=== PATIENT | female | born 1980 | race Caucasian/White ===

== ENCOUNTER 2016-04-17 06:23 | Day surgery (SDC) | payer OTHER ==
[~2016-04-17] VITALS: Ht 157.5 cm; Wt 108.4 kg
[~2016-04-17 06:23] MED LIST: AMIT75TA PO; CEFAZOLIN 1GM IVPB FOR OMNI 50 ML IV PRN; CETI10CA PO; FLUO20CA8 PO; HYDR-2666 PO; HYDR12.53 PO; HYDR25TA PO; OMEP40CA5 PO; PROM25TA10 PO; SUMA50TA3 PO; TIZA4CAP3 PO; TRAM50TA PO
[2016-04-17] MEDS ORDERED: HYDROMORPHONE 2 MG/ML VIAL. IV PRN (07:00)
[2016-04-17] MEDS ORDERED: LIDOCAINE 1% 1 ML SYRINGE. ID PRN (07:00)
[2016-04-17] MEDS ORDERED: MORPHINE SULFATE 2 MG/ML DISP.SYRIN. IV PRN (07:00)
[2016-04-17] MEDS ORDERED: IV RINGERS,LACTATED 1000ML 1,000 ML IV SCH (07:00)
[2016-04-17] MEDS ORDERED: FENTANYL PF 100 MCG/2 ML VIAL. IV PRN (07:00)
[2016-04-17] MEDS ORDERED: PROCHLORPERAZINE 10 MG/2 ML VIAL. IV PRN (07:00)
[2016-04-17] MEDS ORDERED: ONDANSETRON PF 4 MG/2 ML VIAL. IV PRN (07:00)
[2016-04-17] MEDS ORDERED: BUPIVACAINE MPF 0.5% 30 ML VIAL. ONE (07:09)
[2016-04-17] MEDS ORDERED: LIDOCAINE 1% PF 30 ML VIAL. ONE ×2 (07:09→08:43)
--- NOTE | 2016-04-17 07:37 | DISCH ---
DISCHARGE INSTRUCTIONS Condition on Discharge Condition on Discharge: Stable Activity After Discharge Activity Instructions for Disc: Other, see below Other activity instructions: wiggle fingers Bathing Instructions: Shower-keep dressing dry Weight Bearing Status after Di: Non weight bearing Diet after Discharge Diet after Discharge: Regular Wound Incision Care Wound/Incision Care: Ice to area for comfort, Keep wound/cast CDI, Keep wound elevated, Change dressing Contacting the DR. after DC Call your doctor for: Concerns you may have Follow-Up Follow up with: Tiny in 2wks MIKALA PEREZ II, MD Apr 17, 2016 07:37
--- NOTE | 2016-04-17 07:38 | PDOC ---
BRIEF OPERATIVE NOTE Date: Apr 17, 2016 Pre-Op Diagnosis R CTS Post-Op Diagnosis same Procedure Performed Open R CTR Surgeon Tiny Anesthesiologist Muna Anesthesia Type: Regional, Conscious Sedation Blood Loss 5mL Complications none MIKALA PEREZ II, MD Apr 17, 2016 07:38
[2016-04-17 07:44] LABS: NEG OBC UR NEG; POS OBC UR POS
[2016-04-17] MEDS ORDERED: ONDANSETRON PF 4 MG/2 ML VIAL. ONE (07:57)
[2016-04-17] MEDS ORDERED: LIDOCAINE 2% 100 MG/5 ML DISP.SYRIN. ONE (07:57)
[2016-04-17] MEDS ORDERED: PROPOFOL 20 ML IV ONE (07:57)
[2016-04-17] MEDS ORDERED: FENTANYL PF 100 MCG/2 ML VIAL. ONE (07:58)
[2016-04-17] MEDS ORDERED: MIDAZOLAM HCL 2 MG/2 ML VIAL. ONE (07:59)
[2016-04-17] MEDS: FENTANYL PF 100 MCG/2 ML VIAL. IV PRN ×2 (09:56→10:07)
[2016-04-17] MEDS ORDERED: HYDROCODONE/APAP 5/325MG TABLET. PO ONE (10:00)
[2016-04-17 10:10] VITALS: BP 160/90
--- NOTE | 2016-04-17 19:56 | OP ---
DATE OF SURGERY: 04/17/2016 SURGEON: Ramone Perez MD. ICT SALES ASSISTANT: None. ANESTHESIA: Whittlesey block . TOURNIQUET TIME: 22 minutes. ESTIMATED BLOOD LOSS: 5 mL. PREOPERATIVE DIAGNOSIS: Right carpal tunnel syndrome. POSTOPERATIVE DIAGNOSIS: Right carpal tunnel syndrome. PROCEDURE PERFORMED: Open right carpal tunnel release. COMPLICATIONS: None. REASON FOR PROCEDURE: The patient is a very pleasant 36-year-old female with progressive numbness and tingling in median nerve distribution in her right hand. She had tried an injection as well as nighttime splinting and these gave her some temporary relief, but her symptoms worsened. Because of this, we had a discussion of risks, benefits, alternatives of proceeding with the above surgery and she elected to proceed. DESCRIPTION OF PROCEDURE: The patient was greeted in the preoperative area by myself. The correct extremity was marked and verified. She was taken to the operative suite and a Whittlesey block was placed by the anesthesiology team. With the tourniquet up, we proceeded to prep and drape the right upper extremity in our usual sterile fashion and conducted a standard preoperative timeout. I then made a skin incision from her distal wrist crease through a volar longitudinal wrist crease. I dissected subcutaneous tissue with a mosquito clamp. I then placed my self-retaining retractor after cauterizing a couple of bleeders with bipolar cautery. I then incised the palmar fascia in line with the skin incision. I identified the transverse carpal ligament and released this. I then used the tip of a small tenotomy scissors to ensure I had full release over the transverse carpal ligament. I then placed a Ragnell retractor at the distal portion of the incision and identified the fascia and spread above and below and incised this to complete my release distally. I then directed my attention to the proximal aspect of the incision and placed a Ragnell retractor there as well with a tenotomy. I then spread above and below the distal antebrachial fascia and released this in an ulnar directed fashion. I then used the tip of the tenotomy scissors to palpate along the course of the nerve to ensure I had accomplished a complete release, which I had. I then irrigated out the operative field after removing my self-retaining retractor with sterile normal saline. I then closed skin with a combination of simple and mattress 2-0 nylon. Prior to completion of wound closure, all counts were reported correct x 2. No complications. She tolerated the surgery well. At the conclusion of surgery, she was transferred gently supine to the recovery room cart and taken to PACU in stable and extubated condition. Postop plan is for her to be nonweightbearing for 6 weeks. I did give her wound care instructions. She will follow up with me in 2 weeks, sooner should a problem arise. RAMONE PEREZ MD DR: ROLANDO/rodolfo JOB#: [id number] / [id number] GE
== END 2016-04-17 10:54 | disposition home or self-care (01) ==
LOC: SURG 06:23
PROVIDERS: ATTEND Orthopaedic Surgery Sports Medicine
DX: G56.01 Carpal tunnel syndrome, right upper limb (principal); I10 Essential (primary) hypertension; K21.9 Gastro-esophageal reflux disease without esophagitis; Z12.4 Encounter for screening for malignant neoplasm of cervix; F41.9 Anxiety disorder, unspecified; F32.9 Major depressive disorder, single episode, unspecified; F17.200 Nicotine dependence, unspecified, uncomplicated
CPT/HCPCS: 64721; 81025; J0690; J2250; J2405; J2704; J3010; J3490

== ENCOUNTER 2016-09-22 19:35 | Emergency (ER) | payer OTHER ==
[~2016-09-22] VITALS: Ht 157.5 cm; Wt 104.3 kg
[~2016-09-22 19:35] MED LIST changes: -CEFAZOLIN 1GM IVPB FOR OMNI 50 ML IV PRN; -HYDR-2666 PO; +HYDR-2758 PO
[2016-09-22 19:38] VITALS: BP 133/70
[2016-09-22] MEDS ORDERED: AMOX875T PO (19:54)
--- NOTE | 2016-09-22 19:54 | PHYS DOC ---
Past Medical History Past Medical History: Hypertension, Migraines, Other Additional Past Medical Histor: Chronic back pain, heartburn Past Surgical History: , Tubal ligation, Other Additional Past Surgical Histo: Breast reduction, Dental surgery, Alcohol Use: None Drug Use: None Adult General Chief Complaint Chief Complaint: DENTAL PROBLEM HPI HPI Patient is a 36 year old female who presents with right jaw dental pain that began today. Patient denies any fever or trismus. She states she does have a dentist she would like antibiotics. Review of Systems Review of Systems Constitutional: See history of present illness Eyes: Denies change in visual acuity, redness, or eye pain [] HENT: Right lower gum dental pain Musculoskeletal: Denies back pain or joint pain [] Integument: Denies rash or skin lesions [] Neurologic: Denies headache, focal weakness or sensory changes [] Allergies Allergies Allergies Coded Allergies Type Severity Reaction Last Updated Verified pregabalin Allergy Intermediate Itching 04/17/16 Yes lisinopril Adverse Reaction Intermediate 04/17/16 Yes Physical Exam Physical Exam Constitutional: Well developed, well nourished, no acute distress, non-toxic appearance. [] HENT: Normocephalic, atraumatic, bilateral external ears normal, oropharynx moist, no oral exudates, nose normal. [] Scattered dental caries throughout her teeth. No gum erythema. No gum swelling. Skin: Warm, dry, no erythema, no rash. [] Neurologic: Alert and oriented X 3, normal motor function, normal sensory function, no focal deficits noted. [] Psychologic: Affect normal, judgement normal, mood normal. [] Current Patient Data Vital Signs Vital Signs Date Time Temp Pulse Resp B/P (MAP) Pulse Ox O2 Delivery O2 Flow Rate FiO2 09/22/16 19:38 98.7 104 16 97 Room Air 98.7 EKG EKG [] Radiology/Procedures Radiology/Procedures [] Course & Med Decision Making Course & Med Decision Making Pertinent Labs and Imaging studies reviewed. (See chart for details) Patient has dental caries. Will be discharged with amoxicillin for 10 days. Follow-up with primary care doctor in 1-2 weeks. Dragon Disclaimer Dragon Disclaimer This electronic medical record was generated, in whole or in part, using a voice recognition dictation system. Departure Departure Impression: Primary Impression: Dentalgia Additional Impression: Dental caries Disposition: HOME, SELF-CARE Condition: STABLE Referrals: DARRIN WYNN (PCP) Follow-up with your dentist as soon as possible Patient Instructions: Dental Caries-Brief, Dental Pain, [id number] Additional Instructions: You were seen for dental pain from dental caries. Please complete your antibiotics. Follow-up with your dentist as soon as possible. Scripts Amoxicillin (AMOXICILLIN) 875 Mg Tablet 1 TAB PO BID, #20 TAB Prov: YENIFER MELENDEZ APRN 09/22/16 Problem Qualifiers YENIFER MELENDEZ APRN Sep 22, 2016 19:54
== END 2016-09-22 19:57 | disposition home or self-care (01) ==
LOC: ER 19:35
DX: K02.9 Dental caries, unspecified (principal); K08.89 Other specified disorders of teeth and supporting structures; G89.29 Other chronic pain; I10 Essential (primary) hypertension; G43.909 Migraine, unspecified, not intractable, without status migrainosus; Z88.8 Allergy status to other drugs, medicaments and biological substances
CPT/HCPCS: 99283

== ENCOUNTER 2017-12-29 17:39 | Emergency (ER) | payer OTHER ==
[~2017-12-29] VITALS: Ht 157.5 cm; Wt 88.5 kg
[~2017-12-29 17:39] MED LIST changes: +AMOX875T PO
[2017-12-29] MEDS ORDERED: IV NORMAL SALINE 1000ML BAG 1,000 ML IV ONE (19:00)
[2017-12-29] MEDS ORDERED: ONDANSETRON PF 4 MG/2 ML VIAL. IV ONE (19:00)
--- NOTE | 2017-12-29 19:17 | PHYS DOC ---
Past Medical History Past Medical History: Diabetes-Type II, Hypertension, Migraines, Other Additional Past Medical Histor: Chronic back pain, heartburn, cyclic vomiiting syndrome Past Surgical History: , Tubal ligation, Other Additional Past Surgical Histo: Breast reduction, Dental surgery, "cold knife cone biopsy" Additional Information: quit smoking 3 years ago Alcohol Use: None Drug Use: Marijuana Social History Narrative: daily use Adult General Chief Complaint Chief Complaint: NAUSEA/VOMITING/DIARRHA HPI HPI Patient is a 37 year old female who presents with intractable nausea and vomiting. Patient states she has a known history of cyclic vomiting syndrome. She was last in an emergency department yesterday morning. Today, she presents to this emergency department complaining of vomiting. She does endorse daily use of marijuana. She denies abdominal pain or fever. She states this is a very typical presentation for her. She does go to multiple ERs across [place] frequently. She is asking for Ativan and Phenergan and Zofran. Review of Systems Review of Systems Constitutional: Denies fever or chills Eyes: Denies change in visual acuity HENT: Denies nasal congestion or sore throat Respiratory: Denies cough or shortness of breath Cardiovascular: No additional information not addressed in HPI GI: Denies abdominal pain : Denies dysuria or hematuria Musculoskeletal: Denies back pain Integument: Denies rash Neurologic: Denies headache All other systems were reviewed and found to be within normal limits, except as documented in this note. Current Medications Current Medications Current Medications Medications (Trade) Dose Ordered Sig/Darinel Start Time Stop Time Status Last Admin Dose Admin Famotidine (Pepcid Vial) 20 mg 1X ONCE 12/29/17 19:30 12/29/17 19:31 DC 12/29/17 19:10 20 MG Lorazepam (Ativan) 1 mg 1X ONCE 12/29/17 19:45 12/29/17 19:46 DC 12/29/17 19:26 1 MG Ondansetron HCl (Zofran) 4 mg 1X ONCE 12/29/17 19:00 12/29/17 19:01 DC 12/29/17 18:40 4 MG Prochlorperazine Edisylate (Compazine) 10 mg 1X ONCE 12/29/17 19:45 12/29/17 19:46 DC 12/29/17 19:26 10 MG Sodium Chloride 1,000 ml @ 1,000 mls/hr 1X ONCE 12/29/17 19:00 12/29/17 19:59 DC 12/29/17 18:40 1,000 MLS/HR Allergies Allergies Allergies Coded Allergies Type Severity Reaction Last Updated Verified pregabalin Allergy Intermediate Itching 04/17/16 Yes lisinopril Adverse Reaction Intermediate 04/17/16 Yes Physical Exam Physical Exam Constitutional: Well developed, well nourished, actively heaving into emesis basin HENT: Normocephalic, atraumatic, bilateral external ears normal, oropharynx moist Eyes: PERRLA, EOMI Neck: Normal range of motion Cardiovascular:Heart rate regular rhythm, no murmur Lungs & Thorax: Bilateral breath sounds clear to auscultation Abdomen: Bowel sounds normal, soft Skin: Warm, dry, no erythema Extremities: No tenderness Neurologic: Alert and oriented X 3 Psychologic: Affect normal Current Patient Data Vital Signs Vital Signs Date Time Temp Pulse Resp B/P (MAP) Pulse Ox O2 Delivery O2 Flow Rate FiO2 12/29/17 18:45 57 18 169/77 (107) Room Air Lab Values Laboratory Tests Test 12/29/17 18:06 POC Urine HCG, Qualitative Hcg negative (Negative) EKG EKG [] Radiology/Procedures Radiology/Procedures [] Course & Med Decision Making Course & Med Decision Making Pertinent Labs and Imaging studies reviewed. (See chart for details) Is evaluated for vomiting. She is actively heaving. She was requesting Phenergan. We do not have this drug available. She is given a dose of Ativan, Zofran, Pepcid. 19:15: Continues to have emesis. She is dry heaving. She is requesting water. We'll re-dose with medications and reevaluate. 20:30: Patient now has been sleeping for about an hour with no emesis. Her vital signs are stable. Plan is for discharge home. She is advised to follow-up with her primary care doctor or return to the ER if her symptoms return. Dragon Disclaimer Dragon Disclaimer This electronic medical record was generated, in whole or in part, using a voice recognition dictation system. Departure Departure Referrals: GONZÁLEZ BETTS MD (PCP) SOPHY LUCERO DO Dec 29, 2017 19:17
[2017-12-29] MEDS ORDERED: FAMOTIDINE 20 MG/2 ML VIAL IVP ONE (19:30)
[2017-12-29 19:42] VITALS: BP 166/80
[2017-12-29] MEDS ORDERED: PROCHLORPERAZINE 10 MG/2 ML VIAL. IV ONE (19:45)
== END 2017-12-29 20:45 | disposition home or self-care (01) ==
LOC: ER 17:39
DX: R11.2 Nausea with vomiting, unspecified (principal); I10 Essential (primary) hypertension; E11.9 Type 2 diabetes mellitus without complications; G89.29 Other chronic pain; M54.9 Dorsalgia, unspecified; F12.10 Cannabis abuse, uncomplicated; Z87.891 Personal history of nicotine dependence; Z88.8 Allergy status to other drugs, medicaments and biological substances
CPT/HCPCS: 81025; 96361; 96374; 96375; 96376; 99284; J0780; J2060; J2405; J3490; J7030

== ENCOUNTER 2019-01-04 10:21 | Emergency (ER) | payer OTHER ==
[~2019-01-04] VITALS: Ht 157.5 cm; Wt 81.6 kg
[~2019-01-04 10:21] MED LIST changes: -HYDR-2758 PO; +HYDR-2761 PO; -HYDR12.53 PO; +HYDR12.575 PO; +OMEP40CA45 PO; -OMEP40CA5 PO
[2019-01-04] MEDS ORDERED: HALOPERIDOL LACTATE 5 MG/ML VIAL. IVP ONE (10:45)
[2019-01-04] MEDS ORDERED: methylPREDNISolone SOD SUCC PF 125 MG/2 ML VIAL. IV ONE (10:45)
[2019-01-04] MEDS ORDERED: PROCHLORPERAZINE 10 MG/2 ML VIAL. IV ONE (10:45)
[2019-01-04] MEDS ORDERED: KETOROLAC 30 MG/ML VIAL. IVP ONE (10:45)
[2019-01-04 11:24] LABS: BILIRUBIN,URINE NEGATIVE (NEG); CLARITY,URINE TURBID; COLOR,URINE YELLOW; NITRITE,URINE NEGATIVE (NEG); PROTEIN,URINE 30 mg/dL (NEG-TRACE); UROBILINOGEN,URINE 0.2 mg/dL (0.2 mg/dL)
[2019-01-04 11:27] LABS: BARBITURATES NEG (NEG); BENZODIAZEPINES NEG (NEG); CANNABINOIDS POS (NEG); COCAINE NEG (NEG); METHADONE NEG (NEG); OPIATES NEG (NEG); PHENCYCLIDINE NEG (NEG)
[2019-01-04 11:28] LABS: AMPHETAMINE/METHAMPHETAMINE NEG (NEG)
[2019-01-04 11:37] LABS: SQUAMOUS EPITHELIAL CELL,UR MOD /LPF
[2019-01-04 11:38] LABS: BASO # 0.1 x10^3/uL (0.0-0.2); BASO % 1 % (0-3); EOS % 0 % (0-3); HEMATOCRIT 44.8 % (36.0-47.0); HEMOGLOBIN 15.5 g/dL (12.0-15.5); LYMPH # 1.9 x10^3/uL (1.0-4.8); LYMPH % 10 % (24-48); MEAN CORPUSCULAR HEMOGLOBIN 32 pg (25-35); MEAN CORPUSCULAR HGB CONC 35 g/dL (31-37); MEAN CORPUSCULAR VOLUME 94 fL (79-100); MONO # 0.7 x10^3/uL (0.0-1.1); MONO % 4 % (0-9); NEUT # 16.6 x10^3/uL (1.8-7.7); NEUT % 86 % (31-73); PLATELET COUNT 394 x10^3/uL (140-400); RED BLOOD COUNT 4.78 x10^6/uL (3.50-5.40); RED CELL DISTRIBUTION WIDTH 14.7 % (11.5-14.5); WHITE BLOOD COUNT 19.3 x10^3/uL (4.0-11.0)
[2019-01-04 11:39] LABS: BACTERIA,URINE MOD /HPF (0-FEW)
[2019-01-04 11:40] LABS: YEAST,URINE PRESENT /HPF
[2019-01-04 11:48] LABS: CALCIUM 9.8 mg/dL (8.5-10.1); GFR 62.7; POTASSIUM 3.1 mmol/L (3.5-5.1)
[2019-01-04 11:55] LABS: ALBUMIN 4.3 g/dL (3.4-5.0); ALBUMIN/GLOBULIN RATIO 1.1 (1.0-1.7); TOTAL PROTEIN 8.3 g/dL (6.4-8.2)
[2019-01-04] MEDS ORDERED: IOHEXOL 300 MG/ML 100ML VIAL. IV ONE (12:30)
[2019-01-04] MEDS ORDERED: CONTRAST GIVEN. MC PRN (12:30)
[2019-01-04 12:51] LABS: % BANDS 1 % (0-9); % LYMPHS 5 % (24-48); % MONOS 5 % (0-10); % SEGS 89 % (35-66); PLT ESTIMATE ADEQUATE (ADEQUATE); TOXIC VACUOLATION SLIGHT
--- NOTE | 2019-01-04 13:40 | RAD ---
CT of the abdomen and pelvis with IV contrast, compared to similar study dated June 29, 2007 for abdominal pain, vomiting, elevated white blood cell count. TECHNIQUE: Contiguous helical 5 mm axial images are obtained from the apex of diaphragm to the pelvic floor following a ministration of IV contrast. Sagittal and coronal reformations are evaluated. FINDINGS: The lung bases are clear. Heart size within normal limits. The distal esophagus is patulous. The liver, gallbladder, pancreas, spleen, and adrenal glands are grossly unremarkable. Left kidney is normal. At the posterior midpole of the right kidney there is 1.6 cm hypodense lesion with Hounsfield units of 30 suggesting complex fluid or soft tissue. This is incompletely evaluated on this single phase examination. No hydronephrosis or nephrolithiasis identified. The ureters are normal in course and caliber throughout their distribution. The urinary bladder is partially fluid distended and grossly unremarkable. Uterus is present. Left ovary is identified. Right ovary is not clearly seen. No free or loculated fluid collections within the abdomen or pelvis. There is limited evaluation of large and small bowel due to lack of enteric contrast, however there are no areas of focal bowel wall thickening or bowel dilatation. The appendix is normal in appearance. Spinal alignment is intact. There is a limbus vertebrae at L5, and there is mild degenerative disc disease at L5-S1. IMPRESSION: 1. No acute abnormalities of the abdomen or pelvis are identified. 2. 1.6 cm abnormality within the midpole of the right kidney, perhaps a complex cyst versus neoplasm. Further evaluation with renal ultrasound, 3 [address] scan, or renal MRI would yield clarity. 3. Incidental limbus vertebra at L5 of doubtful clinical significance. RS Compliance Statement: One or more of the following individualized dose reduction techniques were utilized for this examination: 1. Automated exposure control 2. Adjustment of the mA and/or kV according to patient size 3. Use of iterative reconstruction technique Electronically signed by: Endy Avelar MD (01/04/2019 1:37 PM) [id number]
[2019-01-04] MEDS ORDERED: POTASSIUM CHLORIDE 20 MEQ TABLET.ER. PO ONE (14:45)
[2019-01-04] MEDS ORDERED: ONDA4TAB12 PO (14:55)
--- NOTE | 2019-01-04 14:56 | PHYS DOC ---
Past Medical History Past Medical History: Diabetes-Type II, Hypertension, Migraines, Other Additional Past Medical Histor: Chronic back pain, heartburn, cyclic vomiiting syndrome Past Surgical History: , Tubal ligation, Other Additional Past Surgical Histo: Breast reduction, Dental surgery, "cold knife cone biopsy" Alcohol Use: None Drug Use: Marijuana Adult General Chief Complaint Chief Complaint: NAUSEA/VOMITING/DIARRHA HPI HPI Patient is a 38 year old female with history of cyclic vomiting, migraine headaches who presents today complaining of nausea, vomiting, generalized abdominal pain and a generalized migraine headache that began this morning at 5 AM. Patient states her cyclic vomiting is not induced by marijuana use though she used it a couple days ago. Denies this being the worst headache in her life. Denies any exacerbating or relieving factors to her symptoms. Review of Systems Review of Systems Constitutional: Denies fever or chills [] Eyes: Denies change in visual acuity, redness, or eye pain [] HENT: Denies nasal congestion or sore throat [] Respiratory: Denies cough or shortness of breath [] Cardiovascular: No additional information not addressed in HPI [] GI: Reports generalized abdominal pain, nausea, vomiting, denies bloody stools or diarrhea [] : Denies dysuria or hematuria [] Musculoskeletal: Denies back pain or joint pain [] Integument: Denies rash or skin lesions [] Neurologic: Reports migraine headache, denies focal weakness or sensory changes [] All other systems were reviewed and found to be within normal limits, except as documented in this note. Current Medications Current Medications Current Medications Medications (Trade) Dose Ordered Sig/[facility] Start Time Stop Time Status Last Admin Dose Admin Haloperidol Lactate (Haldol Inj) 5 mg 1X ONCE 01/04/19 10:45 01/04/19 10:48 DC 01/04/19 11:32 5 MG Info (CONTRAST GIVEN -- Rx MONITORING) 1 each PRN DAILY PRN 01/04/19 12:30 01/06/19 12:29 Iohexol (Omnipaque 300 Mg/ml) 75 ml 1X ONCE 01/04/19 12:30 01/04/19 12:31 DC 01/04/19 12:39 75 ML Ketorolac Tromethamine (Toradol 30mg Vial) 30 mg 1X ONCE 01/04/19 10:45 01/04/19 10:48 DC 01/04/19 11:32 30 MG Methylprednisolone Sodium Succinate (SOLU-Medrol 125MG VIAL) 125 mg 1X ONCE 01/04/19 10:45 01/04/19 10:48 DC 01/04/19 11:32 125 MG Potassium Chloride (Klor-Con) 40 meq 1X ONCE 01/04/19 14:45 01/04/19 14:46 DC Prochlorperazine Edisylate (Compazine) 10 mg 1X ONCE 01/04/19 10:45 01/04/19 10:48 DC 01/04/19 11:32 10 MG Allergies Allergies Allergies Coded Allergies Type Severity Reaction Last Updated Verified pregabalin Allergy Intermediate Itching 04/17/16 Yes lisinopril Adverse Reaction Intermediate 04/17/16 Yes Physical Exam Physical Exam Constitutional: Well developed, well nourished, no acute distress, non-toxic appearance. [] HENT: Normocephalic, atraumatic, bilateral external ears normal, oropharynx moist, no oral exudates, nose normal. [] Eyes: PERRLA, EOMI, conjunctiva normal, no discharge. [] Neck: Normal range of motion, no tenderness, supple, no stridor. [] Cardiovascular:Heart rate regular rhythm, no murmur [] Lungs & Thorax: Bilateral breath sounds clear to auscultation [] Abdomen: Patient is actively vomiting on arrival to the ED by EMS. Bowel sounds normal, soft, diffuse tenderness throughout the abdomen, no masses, no pulsatile masses. [] Skin: Warm, dry, no erythema, no rash. [] Back: No tenderness, no CVA tenderness. [] Extremities: No tenderness, no cyanosis, no clubbing, ROM intact, no edema. [] Neurologic: Alert and oriented X 3, normal motor function, normal sensory function, no focal deficits noted. Cranial nerves II through XII intact Psychologic: Affect normal, judgement normal, mood normal. [] Current Patient Data Vital Signs Vital Signs Date Time Temp Pulse Resp B/P (MAP) Pulse Ox O2 Delivery O2 Flow Rate FiO2 01/04/19 10:54 98.6 76 16 157/85 (109) 100 Room Air 98.6 Lab Values Laboratory Tests Test 01/04/19 11:10 01/04/19 11:13 01/04/19 11:26 Urine Collection Type Unknown Urine Color Yellow Urine Clarity Turbid Urine pH 8.0 Urine Specific [place] 1.015 Urine Protein 30 mg/dL (NEG-TRACE) Urine Glucose (UA) Negative mg/dL (NEG) Urine Ketones (Stick) >=80 mg/dL (NEG) Urine Blood Large (NEG) Urine Nitrite Negative (NEG) Urine Bilirubin Negative (NEG) Urine Urobilinogen Dipstick 0.2 mg/dL (0.2 mg/dL) Urine Leukocyte Esterase Trace (NEG) Urine RBC 6-10 /HPF (0-2) Urine WBC 5-10 /HPF (0-4) Urine Squamous Epithelial Cells Mod /LPF Urine Bacteria Mod /HPF (0-FEW) Urine Yeast Present /HPF Urine Opiates Screen Neg (NEG) Urine Methadone Screen Neg (NEG) Urine Barbiturates Neg (NEG) Urine Phencyclidine Screen Neg (NEG) Urine Amphetamine/Methamphetamine Neg (NEG) Urine Benzodiazepines Screen Neg (NEG) Urine Cocaine Screen Neg (NEG) Urine Cannabinoids Screen Pos (NEG) Urine Ethyl Alcohol Neg (NEG) POC Urine HCG, Qualitative Hcg negative (Negative) White Blood Count 19.3 x10^3/uL (4.0-11.0) H Red Blood Count 4.78 x10^6/uL (3.50-5.40) Hemoglobin 15.5 g/dL (12.0-15.5) Hematocrit 44.8 % (36.0-47.0) Mean Corpuscular Volume 94 fL (79-100) Mean Corpuscular Hemoglobin 32 pg (25-35) Mean Corpuscular Hemoglobin Concent 35 g/dL (31-37) Red Cell Distribution Width 14.7 % (11.5-14.5) H Platelet Count 394 x10^3/uL (140-400) Neutrophils (%) (Auto) 86 % (31-73) H Lymphocytes (%) (Auto) 10 % (24-48) L Monocytes (%) (Auto) 4 % (0-9) Eosinophils (%) (Auto) 0 % (0-3) Basophils (%) (Auto) 1 % (0-3) Neutrophils # (Auto) 16.6 x10^3/uL (1.8-7.7) H Lymphocytes # (Auto) 1.9 x10^3/uL (1.0-4.8) Monocytes # (Auto) 0.7 x10^3/uL (0.0-1.1) Eosinophils # (Auto) 0.0 x10^3/uL (0.0-0.7) Basophils # (Auto) 0.1 x10^3/uL (0.0-0.2) Segmented Neutrophils % 89 % (35-66) H Band Neutrophils % 1 % (0-9) Lymphocytes % 5 % (24-48) L Monocytes % 5 % (0-10) Toxic Vacuolation Slight Dohle Bodies Present Platelet Estimate Adequate (ADEQUATE) Sodium Level 144 mmol/L (136-145) Potassium Level 3.1 mmol/L (3.5-5.1) L Chloride Level 103 mmol/L (98-107) Carbon Dioxide Level 21 mmol/L (21-32) Anion Gap 20 (6-14) H Blood Urea Nitrogen 16 mg/dL (7-20) Creatinine 1.0 mg/dL (0.6-1.0) Estimated GFR (Cockcroft-Gault) 62.7 BUN/Creatinine Ratio 16 (6-20) Glucose Level 193 mg/dL (70-99) H Calcium Level 9.8 mg/dL (8.5-10.1) Total Bilirubin 1.0 mg/dL (0.2-1.0) Aspartate Amino Transferase (AST) 18 U/L (15-37) Alanine Aminotransferase (ALT) 16 U/L (14-59) Alkaline Phosphatase 89 U/L (46-116) Total Protein 8.3 g/dL (6.4-8.2) H Albumin 4.3 g/dL (3.4-5.0) Albumin/Globulin Ratio 1.1 (1.0-1.7) Lipase 124 U/L (73-393) Ethyl Alcohol Level < 10 mg/dL (0-10) Laboratory Tests 01/04/19 11:26 Laboratory Tests 01/04/19 11:26 EKG EKG [] Radiology/Procedures Radiology/Procedures []PROCEDURE: CT ABD PELV W/ IV CONTRST ONLY CT of the abdomen and pelvis with IV contrast, compared to similar study dated June 29, 2007 for abdominal pain, vomiting, elevated white blood cell count. TECHNIQUE: Contiguous helical 5 mm axial images are obtained from the apex of diaphragm to the pelvic floor following a ministration of IV contrast. Sagittal and coronal reformations are evaluated. FINDINGS: The lung bases are clear. Heart size within normal limits. The distal esophagus is patulous. The liver, gallbladder, pancreas, spleen, and adrenal glands are grossly unremarkable. Left kidney is normal. At the posterior midpole of the right kidney there is 1.6 cm hypodense lesion with Hounsfield units of 30 suggesting complex fluid or soft tissue. This is incompletely evaluated on this single phase examination. No hydronephrosis or nephrolithiasis identified. The ureters are normal in course and caliber throughout their distribution. The urinary bladder is partially fluid distended and grossly unremarkable. Uterus is present. Left ovary is identified. Right ovary is not clearly seen. No free or loculated fluid collections within the abdomen or pelvis. There is limited evaluation of large and small bowel due to lack of enteric contrast, however there are no areas of focal bowel wall thickening or bowel dilatation. The appendix is normal in appearance. Spinal alignment is intact. There is a limbus vertebrae at L5, and there is mild degenerative disc disease at L5-S1. IMPRESSION: 1. No acute abnormalities of the abdomen or pelvis are identified. 2. 1.6 cm abnormality within the midpole of the right kidney, perhaps a complex cyst versus neoplasm. Further evaluation with renal ultrasound, [address] scan, or renal MRI would yield clarity. 3. Incidental limbus vertebra at L5 of doubtful clinical significance. PQRS Compliance Statement: One or more of the following individualized dose reduction techniques were utilized for this examination: 1. Automated exposure control 2. Adjustment of the mA and/or kV according to patient size 3. Use of iterative reconstruction technique Electronically signed by: Rey Quinn MD (01/04/2019 1:37 PM) [facility] DICTATED and SIGNED BY: REY QUINN MD DATE: 01/04/19 1333 Course & Med Decision Making Course & Med Decision Making Pertinent Labs and Imaging studies reviewed. (See chart for details) This is a 38-year-old female patient with history of cyclic vomiting presenting to the ED today with nausea vomiting generalized abdominal pain and migraine headache that began at 5. Patient arrives in the ED vomiting. Positive for marijuana use which she believes is not the source of her cyclic vomiting. Urine analysis is negative for infection. CBC with a WBC of 19.3, CMP with potassium of 3.1, patient was given oral potassium replacement. CT of the abdomen and pelvic was negative for any acute findings but noted for incidental findings of 1.6 cm abnormality within the midpole of the right kidney, perhaps a complex cyst versus neoplasm. Further evaluation with renal ultrasound, [address] scan, or renal MRI would yield clarity. Incidental limbus vertebra at L5 of doubtful clinical significance. Patient's symptoms are well controlled. Above results were discussed. Discharged to home Dragon Disclaimer Dragon Disclaimer This electronic medical record was generated, in whole or in part, using a voice recognition dictation system. Departure Departure Impression: Primary Impression: Cyclic vomiting syndrome Additional Impressions: Migraine headache Hypokalemia Marijuana use Disposition: HOME, SELF-CARE Condition: STABLE Referrals: ABEL ANDRES PA-C (PCP) Follow-up with your doctor next week Patient Instructions: Hypokalemia-Brief, Recurrent Migraine Headache Additional Instructions: You were evaluated in the emergency room for cyclic vomiting and migraine headaches. Please follow-up with your own doctor. Consider not using marijuana because he tends to exacerbate cyclic vomiting syndrome. Your zofran prescription was sent to your pharmacy [facility] Ondansetron (ONDANSETRON ODT) 4 Mg Tab.rapdis 1 TAB PO PRN Q6-8HRS, #16 TAB Prov: YENIFER MELENDEZ APRN 01/04/19 Problem Qualifiers Additional Impressions: Migraine headache Migraine type: unspecified Status migrainosus presence: without status migrainosus Intractability: not intractable Qualified Codes: G43.909 - Migraine, unspecified, not intractable, without status migrainosus YENIFER MELENDEZ APRN Jan 04, 2019 14:56
[2019-01-04 15:00] VITALS: BP 147/94
== END 2019-01-04 15:28 | disposition home or self-care (01) ==
LOC: ER 10:21
DX: G43.A0 Cyclical vomiting, in migraine, not intractable (principal); E87.6 Hypokalemia; F12.20 Cannabis dependence, uncomplicated; E11.9 Type 2 diabetes mellitus without complications; I10 Essential (primary) hypertension; G89.29 Other chronic pain; Z98.890 Other specified postprocedural states; Z98.51 Tubal ligation status; Z88.8 Allergy status to other drugs, medicaments and biological substances
CPT/HCPCS: 36415; 74177; 80053; 80307; 81001; 81025; 83690; 85007; 85025; 96374; 96375; 99285; G0480; J0780; J1630; J1885; J2930; Q9967; 99291-25

== ENCOUNTER 2019-02-16 01:02 | Inpatient (IN) | payer OTHER ==
[~2019-02-16] VITALS: Ht 157.5 cm; Wt 81.7 kg
[~2019-02-16 01:02] MED LIST changes: +FLUO20CA19 PO; -FLUO20CA8 PO; +ONDA4TAB12 PO
[2019-02-16 02:05] LABS: BILIRUBIN,URINE NEGATIVE (NEG); CLARITY,URINE CLEAR; COLOR,URINE YELLOW; NITRITE,URINE NEGATIVE (NEG); PH,URINE 8.5; PROTEIN,URINE NEGATIVE (NEG-TRACE); UROBILINOGEN,URINE 0.2 mg/dL (0.2 mg/dL)
--- NOTE | 2019-02-16 02:10 | PHYS DOC ---
Past Medical History Past Medical History: Diabetes-Type II, Hypertension, Migraines, Other Additional Past Medical Histor: Chronic back pain, heartburn, cyclic vomiiting syndrome Past Surgical History: , Tubal ligation, Other Additional Past Surgical Histo: Breast reduction, Dental surgery, "cold knife cone biopsy" Alcohol Use: None Drug Use: Cocaine, Marijuana Adult General Chief Complaint Chief Complaint: NAUSEA/VOMITING/DIARRHA HPI HPI 39-year-old female presents to the emergency room with complaints of cyclic vomiting. Patient states she was in the hospital for this present one month ago. She describes smoking marijuana pressure 24 hours ago however states that she's had these symptoms for about 24 hours. She's tried medications at home however has not had success. She presents to the ER for further evaluation. Patient is well describes diarrhea 1. She denies any fever. She complains of throat pain secondary to emesis. Nothing makes her symptoms worse, nothing makes her symptoms better. Review of Systems Review of Systems Constitutional: Denies fever or chills [] Eyes: Denies change in visual acuity, redness, or eye pain [] HENT: Denies nasal congestion or sore throat [] Respiratory: Denies cough or shortness of breath [] Cardiovascular: No additional information not addressed in HPI [] GI: Denies abdominal pain, nausea, vomiting, bloody stools or diarrhea [] : Denies dysuria or hematuria [] Musculoskeletal: Denies back pain or joint pain [] Integument: Denies rash or skin lesions [] Neurologic: Denies headache, focal weakness or sensory changes [] Endocrine: Denies polyuria or polydipsia [] All other systems were reviewed and found to be within normal limits, except as documented in this note. Current Medications Current Medications Current Medications Medications (Trade) Dose Ordered Sig/[facility] Start Time Stop Time Status Last Admin Dose Admin Haloperidol Lactate (Haldol Inj) 2.5 mg 1X ONCE 02/16/19 02:30 02/16/19 02:31 DC 02/16/19 02:51 2.5 MG Magnesium Sulfate 50 ml @ 25 mls/hr 1X ONCE 02/16/19 03:15 02/16/19 05:14 UNV Ondansetron HCl (Zofran) 4 mg 1X ONCE 02/16/19 02:15 02/16/19 02:16 DC 02/16/19 02:50 4 MG Potassium Chloride/Water 100 ml @ 100 mls/hr Q1H 02/16/19 03:15 02/16/19 07:14 UNV Sodium Chloride 1,000 ml @ 1,000 mls/hr 1X ONCE 02/16/19 02:15 02/16/19 03:14 02/16/19 02:49 1,000 MLS/HR Allergies Allergies Allergies Coded Allergies Type Severity Reaction Last Updated Verified pregabalin Allergy Intermediate Itching 04/17/16 Yes lisinopril Adverse Reaction Intermediate 04/17/16 Yes Physical Exam Physical Exam Constitutional: Well developed, well nourished, mild distress, non-toxic appearance. [] HENT: Normocephalic, atraumatic, bilateral external ears normal, oropharynx moist, no oral exudates, nose normal. [] Eyes: PERRLA, EOMI, conjunctiva normal, no discharge. [] Cardiovascular:Heart rate regular rhythm, no murmur [] Lungs & Thorax: Bilateral breath sounds clear to auscultation [] Abdomen: Bowel sounds normal, soft, no tenderness, no masses, no pulsatile masses. [] Skin: Warm, dry, no erythema, no rash. [] Back: No tenderness, no CVA tenderness. [] Extremities: No tenderness, no edema. [] Neurologic: Alert and oriented X 3, no focal deficits noted. [] Psychologic: Affect normal, judgement normal, mood normal. [] Current Patient Data Vital Signs Vital Signs Date Time Temp Pulse Resp B/P (MAP) Pulse Ox O2 Delivery O2 Flow Rate FiO2 02/16/19 01:26 98.2 121 30 142/83 (102) 99 Room Air 98.2 Lab Values Laboratory Tests Test 02/16/19 01:40 02/16/19 01:43 02/16/19 02:35 Urine Collection Type Void Urine Color Yellow Urine Clarity Clear Urine pH 8.5 Urine Specific [place] 1.015 Urine Protein Negative mg/dL (NEG-TRACE) Urine Glucose (UA) Negative mg/dL (NEG) Urine Ketones (Stick) Trace mg/dL (NEG) Urine Blood Negative (NEG) Urine Nitrite Negative (NEG) Urine Bilirubin Negative (NEG) Urine Urobilinogen Dipstick 0.2 mg/dL (0.2 mg/dL) Urine Leukocyte Esterase Negative (NEG) Urine RBC 6-10 /HPF (0-2) Urine WBC 5-10 /HPF (0-4) Urine Squamous Epithelial Cells Mod /LPF Urine Bacteria Few /HPF (0-FEW) Urine Hyaline Casts Moderate /HPF POC Urine HCG, Qualitative Hcg negative (Negative) White Blood Count 32.0 x10^3/uL (4.0-11.0) H Red Blood Count 5.03 x10^6/uL (3.50-5.40) Hemoglobin 16.5 g/dL (12.0-15.5) H Hematocrit 47.7 % (36.0-47.0) H Mean Corpuscular Volume 95 fL (79-100) Mean Corpuscular Hemoglobin 33 pg (25-35) Mean Corpuscular Hemoglobin Concent 35 g/dL (31-37) Red Cell Distribution Width 14.6 % (11.5-14.5) H Platelet Count 564 x10^3/uL (140-400) H Neutrophils (%) (Auto) 84 % (31-73) H Lymphocytes (%) (Auto) 9 % (24-48) L Monocytes (%) (Auto) 6 % (0-9) Eosinophils (%) (Auto) 0 % (0-3) Basophils (%) (Auto) 0 % (0-3) Neutrophils # (Auto) 27.0 x10^3/uL (1.8-7.7) H Lymphocytes # (Auto) 3.0 x10^3/uL (1.0-4.8) Monocytes # (Auto) 2.0 x10^3/uL (0.0-1.1) H Eosinophils # (Auto) 0.0 x10^3/uL (0.0-0.7) Basophils # (Auto) 0.0 x10^3/uL (0.0-0.2) Platelet Estimate Pending Sodium Level 143 mmol/L (136-145) Potassium Level 2.5 mmol/L (3.5-5.1) *L Chloride Level 99 mmol/L (98-107) Carbon Dioxide Level 25 mmol/L (21-32) Anion Gap 19 (6-14) H Blood Urea Nitrogen 17 mg/dL (7-20) Creatinine 2.5 mg/dL (0.6-1.0) H Estimated GFR (Cockcroft-Gault) 21.7 BUN/Creatinine Ratio 7 (6-20) Glucose Level 214 mg/dL (70-99) H Calcium Level 10.9 mg/dL (8.5-10.1) H Magnesium Level 1.5 mg/dL (1.8-2.4) L Total Bilirubin 0.8 mg/dL (0.2-1.0) Aspartate Amino Transferase (AST) 26 U/L (15-37) Alanine Aminotransferase (ALT) Pending Alkaline Phosphatase 92 U/L (46-116) Total Protein 9.0 g/dL (6.4-8.2) H Albumin 4.2 g/dL (3.4-5.0) Albumin/Globulin Ratio 0.9 (1.0-1.7) L Laboratory Tests 02/16/19 02:35 Laboratory Tests 02/16/19 02:35 EKG EKG [] Radiology/Procedures Radiology/Procedures [] Course & Med Decision Making Course & Med Decision Making Pertinent Labs and Imaging studies reviewed. (See chart for details) []39-year-old female presents to the emergency room with complaints of cyclic vomiting. Patient states she was in the hospital for this present one month ago. She describes smoking marijuana pressure 24 hours ago however states that she's had these symptoms for about 24 hours. She's tried medications at home however has not had success. She presents to the ER for further evaluation. Patient is well describes diarrhea 1. She denies any fever. She complains of throat pain secondary to emesis. Nothing makes her symptoms worse, nothing makes her symptoms better. Labs reviewed, white blood cell count 32,000 reviewed with WBC 19K in December, urinalysis negative patient with evidence of hypokalemia 2.5, hypomag 1.5, acute kidney injury creatinine 2.5 Haldol 2.5mg IV x 1, zofran 4mg IV x 1, IVF 1 liter Given RONIT, electrolyte abnormalities - will admit for observation Reviewed findings with patient at bedside Plan admit with hospitalist Patient is resting comfortably at this time Dragon Disclaimer Dragon Disclaimer This electronic medical record was generated, in whole or in part, using a voice recognition dictation system. Departure Departure Impression: Primary Impression: Cyclic vomiting syndrome Additional Impressions: Hypokalemia Hypomagnesemia RONIT (acute kidney injury) Leukocytosis Admitting Physician: RITESH Condition: IMPROVED Referrals: ABEL ANDRES PA-C (PCP) Problem Qualifiers Additional Impressions: Leukocytosis Leukocytosis type: unspecified Qualified Codes: D72.829 - Elevated white blood cell count, unspecified CHADWICK TERAN MD Feb 16, 2019 02:09
[2019-02-16] MEDS ORDERED: ONDANSETRON PF 4 MG/2 ML VIAL. IV ONE (02:15)
[2019-02-16] MEDS ORDERED: IV NORMAL SALINE 1000ML BAG 1,000 ML IV ONE ×2 (02:15→03:30)
[2019-02-16 02:17] LABS: BACTERIA,URINE FEW /HPF (0-FEW); HYALINE CASTS, URINE MODERATE /HPF; SQUAMOUS EPITHELIAL CELL,UR MOD /LPF
[2019-02-16] MEDS ORDERED: HALOPERIDOL LACTATE 5 MG/ML VIAL. IVP ONE ×2 (02:30→15:15)
[2019-02-16 02:47] LABS: BASO % 0 % (0-3); EOS % 0 % (0-3); HEMATOCRIT 47.7 % (36.0-47.0); HEMOGLOBIN 16.5 g/dL (12.0-15.5); LYMPH % 9 % (24-48); MEAN CORPUSCULAR HEMOGLOBIN 33 pg (25-35); MEAN CORPUSCULAR HGB CONC 35 g/dL (31-37); MEAN CORPUSCULAR VOLUME 95 fL (79-100); MONO % 6 % (0-9); NEUT % 84 % (31-73); PLATELET COUNT 564 x10^3/uL (140-400); RED BLOOD COUNT 5.03 x10^6/uL (3.50-5.40); RED CELL DISTRIBUTION WIDTH 14.6 % (11.5-14.5)
[2019-02-16 03:02] LABS: ALBUMIN 4.2 g/dL (3.4-5.0); ALBUMIN/GLOBULIN RATIO 0.9 (1.0-1.7); CALCIUM 10.9 mg/dL (8.5-10.1); CREATININE 2.5 mg/dL (0.6-1.0); GFR 21.7; MAGNESIUM 1.5 mg/dL (1.8-2.4); TOTAL BILIRUBIN 0.8 mg/dL (0.2-1.0)
[2019-02-16 03:05] LABS: POTASSIUM 2.5 mmol/L (3.5-5.1)
[2019-02-16] MEDS ORDERED: ONDANSETRON PF 4 MG/2 ML VIAL. IV PRN (03:15)
[2019-02-16] MEDS ORDERED: MAGNESIUM SULFATE 2GM 50 ML IV ONE (03:30)
[2019-02-16 03:57] LABS: % BANDS 2 % (0-9); % LYMPHS 7 % (24-48); % MONOS 3 % (0-10); % SEGS 88 % (35-66)
[2019-02-16 03:58] LABS: PLT ESTIMATE INCREASED (ADEQUATE); TOXIC VACUOLATION SLIGHT
[2019-02-16] MEDS: POTASSIUM CHLORIDE 10MEQ 100 ML IV SCH ×4 (05:13→08:55)
[2019-02-16 07:20] VITALS: BP 135/89
[2019-02-16] MEDS ORDERED: VENL150C PO (09:02)
--- NOTE | 2019-02-16 09:44 | PDOC1 ---
History and Physical Date of Admission Date of Admission DATE: 02/16/19 TIME: 09:44 Identification/Chief Complaint Chief Complaint seen in er , 39-year-old female presents to the emergency room with complaints of cyclic vomiting. Patient states she was in the hospital for this present one month ago. She describes smoking marijuana 24 hours ago however states that she's had these symptoms for about 24 hours. smokes about 20gm a week , states she has had "cyclic vomiting syndrome since age 14" She's tried medications at home however has not had success. She presents to the ER for further evaluation. Patient is well describes diarrhea 1. She denies any fever. She complains of throat pain secondary to emesis. Past Medical History Past Medical History Past Medical History Past Medical History Past Medical History: Diabetes-Type II, Hypertension, Migraines, Other Additional Past Medical Histor: Chronic back pain, heartburn, cyclic vomiiting syndrome Past Surgical History: , Tubal ligation, Other Additional Past Surgical Histo: Breast reduction, Dental surgery, "cold knife cone biopsy" Alcohol Use: None Drug Use: Cocaine, Marijuana fhx obesity GI: Other (cyclic vomiting) Psych: Addictions Family History Family History: High Cholestrol Social History Smoke: <1 pack per day ALCOHOL: none Drugs: Marijuana Current Problem List Problem List Problems Medical Problems: (1) Cyclic vomiting syndrome Status: Acute (2) Hypokalemia Status: Acute Current Medications Current Medications Current Medications Sodium Chloride 1,000 ml @ 1,000 mls/hr 1X ONCE IV Last administered on 02/16/19at 02:49; Start 02/16/19 at 02:15; Stop 02/16/19 at 03:14; Status DC Ondansetron HCl (Zofran) 4 mg 1X ONCE IV Last administered on 02/16/19at 02:50; Start 02/16/19 at 02:15; Stop 02/16/19 at 02:16; Status DC Haloperidol Lactate (Haldol Inj) 2.5 mg 1X ONCE IVP Last administered on 02/16/19at 02:51; Start 02/16/19 at 02:30; Stop 02/16/19 at 02:31; Status DC Magnesium Sulfate 50 ml @ 25 mls/hr 1X ONCE IV Last administered on 02/16/19at 03:34; Start 02/16/19 at 03:30; Stop 02/16/19 at 05:29; Status DC Potassium Chloride/Water 100 ml @ 100 mls/hr Q1H IV Last administered on 02/16/19at 08:55; Start 02/16/19 at 04:00; Stop 02/16/19 at 07:59; Status DC Ondansetron HCl (Zofran) 4 mg PRN Q8HRS PRN IV NAUSEA/VOMITING; Start 02/16/19 at 03:15; Stop 02/17/19 at 03:14 Sodium Chloride 1,000 ml @ 100 mls/hr 1X ONCE IV Last administered on 02/16/19at 06:30; Start 02/16/19 at 03:30; Stop 02/16/19 at 13:29 Active Scripts Active Ondansetron Odt (Ondansetron) 4 Mg Tab.rapdis 1 Tab PO PRN Q6-8HRS Reported Effexor Xr (Venlafaxine Hcl) 150 Mg Cap.er.24h 1 Cap PO DAILY Imitrex (Sumatriptan Succinate) 50 Mg Tablet 50 Mg PO ONCE PRN Zanaflex (Tizanidine Hcl) 4 Mg Capsule 2 Mg PO TID PRN Hydrocodone-Apap 5-325 (Hydrocodone Bit/Acetaminophen) 1 Each Tablet 1 Tab PO PRN Q6HRS PRN Omeprazole 40 Mg Capsule.dr 40 Mg PO DAILY Hydrochlorothiazide Capsule (Hydrochlorothiazide) 12.5 Mg Capsule 12.5 Mg PO DAILY Tramadol Hcl 50 Mg Tablet 50 Mg PO BID Zyrtec (Cetirizine Hcl) 10 Mg Capsule 10 Mg PO DAILY Allergies Allergies: Coded Allergies: pregabalin (Verified Allergy, Intermediate, Itching, 04/17/16) lisinopril (Verified Adverse Reaction, Intermediate, 04/17/16) SEVERE COUGHING ROS Review of System Review of Systems Review of Systems Constitutional: Denies fever or chills [] Eyes: Denies change in visual acuity, redness, or eye pain [] HENT: Denies nasal congestion or sore throat [] Respiratory: Denies cough or shortness of breath [] Cardiovascular: No additional information not addressed in HPI [] GI: Denies abdominal pain, nausea, pos vomiting, bloody stools or diarrhea [] : Denies dysuria or hematuria [] Musculoskeletal: Denies back pain or joint pain [] Integument: Denies rash or skin lesions [] Neurologic: Denies headache, focal weakness or sensory changes [] Endocrine: Denies polyuria or polydipsia [] 14 systems were reviewed and found to be within normal limits, except as documented General: YES: Fatigue Respiratory: No: Cough, Hemoptysis, Orthopnea, Pleuritic Pain, Shortness of breath, SOB with excertion, Sputum Changes, Stridor, Tachypnea, Wheezing, Other Cardiovascular: No Chest Pain, No Palpitations, No Orthopnea, No Paroxysmal Noc. Dyspnea, No Edema, No Lt Headedness, No Other Gastrointestinal: Yes Nausea, Yes Vomiting Musculoskeletal: No Gait Disturbance, No Joint Pain, No Joint Stiffness, No Joint Swelling, No Muscle Pain, No Muscular Weakness, No Pain In:, No Swelling In:, No Other Skin: No Dry Skin, No Eczema, No Hair Changes, No Lumps, No Mole Changes, No Mottling, No Nail Changes, No Pruritus, No Rash, No Skin Lesion Changes, No Other, No Acne Physical Exam Physical Exam Physical Exam Physical Exam Constitutional: Well developed, well nourished, mild distress, non-toxic appearance. [] HENT: Normocephalic, atraumatic, bilateral external ears normal, oropharynx moist, no oral exudates, nose normal. [] Eyes: PERRLA, EOMI, conjunctiva normal, no discharge. [] Cardiovascular:Heart rate regular rhythm, no murmur [] Lungs & Thorax: Bilateral breath sounds clear to auscultation [] Abdomen: Bowel sounds normal, soft, no tenderness, no masses, no pulsatile masses. [] Skin: Warm, dry, no erythema, no rash. [] Back: No tenderness, no CVA tenderness. [] Extremities: No tenderness, no edema. [] Neurologic: Alert and oriented X 3, no focal deficits noted. [] Psychologic: Affect normal, judgement normal, mood normal. [] General: Alert, Oriented X3, Cooperative, mild distress HEENT: PERRLA Lungs: Clear to auscultation, Normal air movement Heart: RRR Breasts: Not examined Abdomen: Normal bowel sounds, Soft, No tenderness Rectal Exam: not examined PELVIC: Examination not indicated Extremities: No cyanosis Neuro: Normal speech, Cranial nerves 3-12 NL Psych/Mental Status: Mental status NL, Mood NL Vitals Vitals Vital Signs Date Time Temp Pulse Resp B/P (MAP) Pulse Ox O2 Delivery O2 Flow Rate FiO2 02/16/19 07:20 98.1 104 18 135/89 (104) 100 Room Air 98.1 Labs Labs Laboratory Tests Test 02/16/19 01:40 02/16/19 01:43 02/16/19 02:35 Urine Collection Type Void Urine Color Yellow Urine Clarity Clear Urine pH 8.5 Urine Specific [place] 1.015 Urine Protein Negative mg/dL (NEG-TRACE) Urine Glucose (UA) Negative mg/dL (NEG) Urine Ketones (Stick) Trace mg/dL (NEG) Urine Blood Negative (NEG) Urine Nitrite Negative (NEG) Urine Bilirubin Negative (NEG) Urine Urobilinogen Dipstick 0.2 mg/dL (0.2 mg/dL) Urine Leukocyte Esterase Negative (NEG) Urine RBC 6-10 /HPF (0-2) Urine WBC 5-10 /HPF (0-4) Urine Squamous Epithelial Cells Mod /LPF Urine Bacteria Few /HPF (0-FEW) Urine Hyaline Casts Moderate /HPF Bedside Urine HCG, Qualitative Hcg negative (Negative) White Blood Count 32.0 x10^3/uL (4.0-11.0) Red Blood Count 5.03 x10^6/uL (3.50-5.40) Hemoglobin 16.5 g/dL (12.0-15.5) Hematocrit 47.7 % (36.0-47.0) Mean Corpuscular Volume 95 fL (79-100) Mean Corpuscular Hemoglobin 33 pg (25-35) Mean Corpuscular Hemoglobin Concent 35 g/dL (31-37) Red Cell Distribution Width 14.6 % (11.5-14.5) Platelet Count 564 x10^3/uL (140-400) Neutrophils (%) (Auto) 84 % (31-73) Lymphocytes (%) (Auto) 9 % (24-48) Monocytes (%) (Auto) 6 % (0-9) Eosinophils (%) (Auto) 0 % (0-3) Basophils (%) (Auto) 0 % (0-3) Neutrophils # (Auto) 27.0 x10^3/uL (1.8-7.7) Lymphocytes # (Auto) 3.0 x10^3/uL (1.0-4.8) Monocytes # (Auto) 2.0 x10^3/uL (0.0-1.1) Eosinophils # (Auto) 0.0 x10^3/uL (0.0-0.7) Basophils # (Auto) 0.0 x10^3/uL (0.0-0.2) Segmented Neutrophils % 88 % (35-66) Band Neutrophils % 2 % (0-9) Lymphocytes % 7 % (24-48) Monocytes % 3 % (0-10) Toxic Vacuolation Slight Platelet Estimate Increased (ADEQUATE) Sodium Level 143 mmol/L (136-145) Potassium Level 2.5 mmol/L (3.5-5.1) Chloride Level 99 mmol/L (98-107) Carbon Dioxide Level 25 mmol/L (21-32) Anion Gap 19 (6-14) Blood Urea Nitrogen 17 mg/dL (7-20) Creatinine 2.5 mg/dL (0.6-1.0) Estimated GFR (Cockcroft-Gault) 21.7 BUN/Creatinine Ratio 7 (6-20) Glucose Level 214 mg/dL (70-99) Calcium Level 10.9 mg/dL (8.5-10.1) Magnesium Level 1.5 mg/dL (1.8-2.4) Total Bilirubin 0.8 mg/dL (0.2-1.0) Aspartate Amino Transf (AST/SGOT) 26 U/L (15-37) Alanine Aminotransferase (ALT/SGPT) 17 U/L (14-59) Alkaline Phosphatase 92 U/L (46-116) Total Protein 9.0 g/dL (6.4-8.2) Albumin 4.2 g/dL (3.4-5.0) Albumin/Globulin Ratio 0.9 (1.0-1.7) Laboratory Tests Test 02/16/19 01:40 02/16/19 01:43 02/16/19 02:35 Urine Collection Type Void Urine Color Yellow Urine Clarity Clear Urine pH 8.5 Urine Specific [place] 1.015 Urine Protein Negative mg/dL (NEG-TRACE) Urine Glucose (UA) Negative mg/dL (NEG) Urine Ketones (Stick) Trace mg/dL (NEG) Urine Blood Negative (NEG) Urine Nitrite Negative (NEG) Urine Bilirubin Negative (NEG) Urine Urobilinogen Dipstick 0.2 mg/dL (0.2 mg/dL) Urine Leukocyte Esterase Negative (NEG) Urine RBC 6-10 /HPF (0-2) Urine WBC 5-10 /HPF (0-4) Urine Squamous Epithelial Cells Mod /LPF Urine Bacteria Few /HPF (0-FEW) Urine Hyaline Casts Moderate /HPF Bedside Urine HCG, Qualitative Hcg negative (Negative) White Blood Count 32.0 x10^3/uL (4.0-11.0) Red Blood Count 5.03 x10^6/uL (3.50-5.40) Hemoglobin 16.5 g/dL (12.0-15.5) Hematocrit 47.7 % (36.0-47.0) Mean Corpuscular Volume 95 fL (79-100) Mean Corpuscular Hemoglobin 33 pg (25-35) Mean Corpuscular Hemoglobin Concent 35 g/dL (31-37) Red Cell Distribution Width 14.6 % (11.5-14.5) Platelet Count 564 x10^3/uL (140-400) Neutrophils (%) (Auto) 84 % (31-73) Lymphocytes (%) (Auto) 9 % (24-48) Monocytes (%) (Auto) 6 % (0-9) Eosinophils (%) (Auto) 0 % (0-3) Basophils (%) (Auto) 0 % (0-3) Neutrophils # (Auto) 27.0 x10^3/uL (1.8-7.7) Lymphocytes # (Auto) 3.0 x10^3/uL (1.0-4.8) Monocytes # (Auto) 2.0 x10^3/uL (0.0-1.1) Eosinophils # (Auto) 0.0 x10^3/uL (0.0-0.7) Basophils # (Auto) 0.0 x10^3/uL (0.0-0.2) Segmented Neutrophils % 88 % (35-66) Band Neutrophils % 2 % (0-9) Lymphocytes % 7 % (24-48) Monocytes % 3 % (0-10) Toxic Vacuolation Slight Platelet Estimate Increased (ADEQUATE) Sodium Level 143 mmol/L (136-145) Potassium Level 2.5 mmol/L (3.5-5.1) Chloride Level 99 mmol/L (98-107) Carbon Dioxide Level 25 mmol/L (21-32) Anion Gap 19 (6-14) Blood Urea Nitrogen 17 mg/dL (7-20) Creatinine 2.5 mg/dL (0.6-1.0) Estimated GFR (Cockcroft-Gault) 21.7 BUN/Creatinine Ratio 7 (6-20) Glucose Level 214 mg/dL (70-99) Calcium Level 10.9 mg/dL (8.5-10.1) Magnesium Level 1.5 mg/dL (1.8-2.4) Total Bilirubin 0.8 mg/dL (0.2-1.0) Aspartate Amino Transf (AST/SGOT) 26 U/L (15-37) Alanine Aminotransferase (ALT/SGPT) 17 U/L (14-59) Alkaline Phosphatase 92 U/L (46-116) Total Protein 9.0 g/dL (6.4-8.2) Albumin 4.2 g/dL (3.4-5.0) Albumin/Globulin Ratio 0.9 (1.0-1.7) Images Images CT of the abdomen and pelvis with IV contrast, compared to similar study dated June 29, 2007 for abdominal pain, vomiting, elevated white blood cell count. TECHNIQUE: Contiguous helical 5 mm axial images are obtained from the apex of diaphragm to the pelvic floor following a ministration of IV contrast. Sagittal and coronal reformations are evaluated. FINDINGS: The lung bases are clear. Heart size within normal limits. The distal esophagus is patulous. The liver, gallbladder, pancreas, spleen, and adrenal glands are grossly unremarkable. Left kidney is normal. At the posterior midpole of the right kidney there is 1.6 cm hypodense lesion with Hounsfield units of 30 suggesting complex fluid or soft tissue. This is incompletely evaluated on this single phase examination. No hydronephrosis or nephrolithiasis identified. The ureters are normal in course and caliber throughout their distribution. The urinary bladder is partially fluid distended and grossly unremarkable. Uterus is present. Left ovary is identified. Right ovary is not clearly seen. No free or loculated fluid collections within the abdomen or pelvis. There is limited evaluation of large and small bowel due to lack of enteric contrast, however there are no areas of focal bowel wall thickening or bowel dilatation. The appendix is normal in appearance. Spinal alignment is intact. There is a limbus vertebrae at L5, and there is mild degenerative disc disease at L5-S1. IMPRESSION: 1. No acute abnormalities of the abdomen or pelvis are identified. 2. 1.6 cm abnormality within the midpole of the right kidney, perhaps a complex cyst versus neoplasm. Further evaluation with renal ultrasound, [address] scan, or renal MRI would yield clarity. 3. Incidental limbus vertebra at L5 of doubtful clinical significance. PQRS Compliance Statement: One or more of the following individualized dose reduction techniques were utilized for this examination: 1. Automated exposure control 2. Adjustment of the mA and/or kV according to patient size 3. Use of iterative reconstruction technique Electronically signed by: Endy Avelar MD (01/04/2019 1:37 PM) [id number] VTE Prophylaxis Ordered VTE Prophylaxis Devices: Yes VTE Pharmacological Prophylaxi: Yes Assessment/Plan Assessment/Plan 1. intractable vomiting 2. 1.6 cm abnormality within the midpole of the right kidney, perhaps a complex cyst versus neoplasm. Further evaluation with renal ultrasound, [address] scan, or renal MRI would yield clarity. ON RECENT CT 3. acute renal injury 4. severe hypokalemia 5. HYPOMAGNESEMIA 6. leukocytosis likely sec to prolonged vomiting 7. morbid obesity 8. THC ABUSE 9. DIABETES 10, HYPERTENSION 11. sirs plan admit replete lytes nephrology consult GI CONSULT iv fluid support dvt prophylaxis renal sono iv zofran 4 MG Q 4 HRS PRN N/V emperic iv rocephin 75 MIN PT EXAM, CHART REVIEW, > 50% OF TIME SPENT WITH EXAM, CHART REVIEW, PT CARE COORDINATION AMITA BERGER MD Feb 16, 2019 09:44
[2019-02-16 10:47] LABS: CALCIUM 9.5 mg/dL (8.5-10.1); POTASSIUM 3.3 mmol/L (3.5-5.1)
[2019-02-16 11:00] VITALS: BP 131/79
[2019-02-16] MEDS ORDERED: 0.9 % SODIUM CHLORIDE 10 ML DISP.SYRIN. IV PRN (12:15)
[2019-02-16] MEDS ORDERED: cloNIDine HCL 0.1 MG TABLET PO PRN (12:15)
[2019-02-16] MEDS ORDERED: LORazepam 0.5 MG TABLET PO PRN (12:15)
[2019-02-16] MEDS ORDERED: ALBUTEROL SULFATE 2.5 MG/3 ML NEBU. NEB PRN (12:15)
[2019-02-16] MEDS ORDERED: DOCUSATE SODIUM 100 MG CAPSULE. PO PRN (12:15)
[2019-02-16] MEDS ORDERED: guaiFENesin ORAL 200 MG/10 ML LIQUID. PO PRN (12:15)
[2019-02-16] MEDS ORDERED: ACETAMINOPHEN 325 MG TABLET. PO PRN (12:15)
--- NOTE | 2019-02-16 12:48 | PDOC2 ---
GI CONSULT Reason For Consult: Cyclic vomiting HPI: HPI: 39 y/o female who reports h/o cyclic vomiting since childhood. Episodes of n/v are now less frequent (maybe twice yearly) and are precipitated by migraines which is what she thinks happened this time. Says she didn't take her migraine pills soon enough and n/v began yesterday. Then she laid down, her back popped, and pain radiated around to front/upper abdomen. Pain has resolved and she is currently tolerating ice chips. In between episodes, she has extended periods without nausea/vomiting. H/o GERD on Protonix QD. No dysphagia but does hurt to swallow a little bit right now. Might have had hematemesis at home but the nurse in the ER told her he didn't see any blood. No diarrhea, constipation, hematochezia, or melena. Had a soft stool yesterday. Maybe lost 4 pounds. EGD with "a small ulcer" @ [facility] ~2 years ago. No previous colonoscopy or GES. Denies GB, liver, and pancreas history. Rarely takes ibuprofen, sometimes takes hydrocodone. Daily marijuana - says she uses for chronic pain and HTN. Tried a month holiday once - says no change in GI symptoms. PMH: PMH: HTN, migraines, GERD, depression/anxiety breast reduction, tubal ligation, FH: Family History: No pertinent hx (denies GI cancers) Social History: Smoke: No ALCOHOL: none Drugs: Marijuana ROS: GEN: Denies fevers, chills, sweats HEENT: Denies blurred vision, sore throat CV: Denies chest pain RESP: Denies shortness of air, cough GI: Per HPI : Denies hematuria, dysuria ENDO: +weight loss NEURO: Denies confusion, dizziness MSK: +chronic pain SKIN: Denies jaundice, pruritus Vitals: Vitals: Vital Signs Date Time Temp Pulse Resp B/P (MAP) Pulse Ox O2 Delivery O2 Flow Rate FiO2 02/16/19 11:00 98.7 96 18 131/79 (96) 99 Room Air 98.7 Labs: Labs: Laboratory Tests Test 02/16/19 01:40 02/16/19 01:43 02/16/19 02:35 02/16/19 10:20 Urine Collection Type Void Urine Color Yellow Urine Clarity Clear Urine pH 8.5 Urine Specific [place] 1.015 Urine Protein Negative mg/dL (NEG-TRACE) Urine Glucose (UA) Negative mg/dL (NEG) Urine Ketones (Stick) Trace mg/dL (NEG) Urine Blood Negative (NEG) Urine Nitrite Negative (NEG) Urine Bilirubin Negative (NEG) Urine Urobilinogen Dipstick 0.2 mg/dL (0.2 mg/dL) Urine Leukocyte Esterase Negative (NEG) Urine RBC 6-10 /HPF (0-2) Urine WBC 5-10 /HPF (0-4) Urine Squamous Epithelial Cells Mod /LPF Urine Bacteria Few /HPF (0-FEW) Urine Hyaline Casts Moderate /HPF Bedside Urine HCG, Qualitative Hcg negative (Negative) White Blood Count 32.0 x10^3/uL (4.0-11.0) Red Blood Count 5.03 x10^6/uL (3.50-5.40) Hemoglobin 16.5 g/dL (12.0-15.5) Hematocrit 47.7 % (36.0-47.0) Mean Corpuscular Volume 95 fL (79-100) Mean Corpuscular Hemoglobin 33 pg (25-35) Mean Corpuscular Hemoglobin Concent 35 g/dL (31-37) Red Cell Distribution Width 14.6 % (11.5-14.5) Platelet Count 564 x10^3/uL (140-400) Neutrophils (%) (Auto) 84 % (31-73) Lymphocytes (%) (Auto) 9 % (24-48) Monocytes (%) (Auto) 6 % (0-9) Eosinophils (%) (Auto) 0 % (0-3) Basophils (%) (Auto) 0 % (0-3) Neutrophils # (Auto) 27.0 x10^3/uL (1.8-7.7) Lymphocytes # (Auto) 3.0 x10^3/uL (1.0-4.8) Monocytes # (Auto) 2.0 x10^3/uL (0.0-1.1) Eosinophils # (Auto) 0.0 x10^3/uL (0.0-0.7) Basophils # (Auto) 0.0 x10^3/uL (0.0-0.2) Segmented Neutrophils % 88 % (35-66) Band Neutrophils % 2 % (0-9) Lymphocytes % 7 % (24-48) Monocytes % 3 % (0-10) Toxic Vacuolation Slight Platelet Estimate Increased (ADEQUATE) Sodium Level 143 mmol/L (136-145) 146 mmol/L (136-145) Potassium Level 2.5 mmol/L (3.5-5.1) 3.3 mmol/L (3.5-5.1) Chloride Level 99 mmol/L (98-107) 104 mmol/L (98-107) Carbon Dioxide Level 25 mmol/L (21-32) 31 mmol/L (21-32) Anion Gap 19 (6-14) 11 (6-14) Blood Urea Nitrogen 17 mg/dL (7-20) 16 mg/dL (7-20) Creatinine 2.5 mg/dL (0.6-1.0) 2.0 mg/dL (0.6-1.0) Estimated GFR (Cockcroft-Gault) 21.7 28.0 BUN/Creatinine Ratio 7 (6-20) Glucose Level 214 mg/dL (70-99) 136 mg/dL (70-99) Calcium Level 10.9 mg/dL (8.5-10.1) 9.5 mg/dL (8.5-10.1) Magnesium Level 1.5 mg/dL (1.8-2.4) 2.5 mg/dL (1.8-2.4) Total Bilirubin 0.8 mg/dL (0.2-1.0) Aspartate Amino Transf (AST/SGOT) 26 U/L (15-37) Alanine Aminotransferase (ALT/SGPT) 17 U/L (14-59) Alkaline Phosphatase 92 U/L (46-116) Total Protein 9.0 g/dL (6.4-8.2) Albumin 4.2 g/dL (3.4-5.0) Albumin/Globulin Ratio 0.9 (1.0-1.7) Allergies: Coded Allergies: pregabalin (Verified Allergy, Intermediate, Itching, 04/17/16) lisinopril (Verified Adverse Reaction, Intermediate, 04/17/16) SEVERE COUGHING Medications: Current Medications Medications (Trade) Dose Ordered Sig/Darinel Route PRN Reason Start Time Stop Time Status Last Admin Dose Admin Sodium Chloride 1,000 ml @ 1,000 mls/hr 1X ONCE IV 02/16/19 02:15 02/16/19 03:14 DC 02/16/19 02:49 Ondansetron HCl (Zofran) 4 mg 1X ONCE IV 02/16/19 02:15 02/16/19 02:16 DC 02/16/19 02:50 Haloperidol Lactate (Haldol Inj) 2.5 mg 1X ONCE IVP 02/16/19 02:30 02/16/19 02:31 DC 02/16/19 02:51 Magnesium Sulfate 50 ml @ 25 mls/hr 1X ONCE IV 02/16/19 03:30 02/16/19 05:29 DC 02/16/19 03:34 Potassium Chloride/Water 100 ml @ 100 mls/hr Q1H IV 02/16/19 04:00 02/16/19 07:59 DC 02/16/19 08:55 Sodium Chloride 1,000 ml @ 100 mls/hr 1X ONCE IV 02/16/19 03:30 02/16/19 13:29 02/16/19 06:30 PE: GEN: NAD HEENT: Atraumatic, PERRL LUNGS: CTAB HEART: RRR ABD: NABS, S/ND/NT EXTREMITY: No edema SKIN: No rashes, no jaundice NEURO/PSYCH: A & O 3 A/P: A/P: Migraine, n/v Leukocytosis, hypokalemia, RONIT GERD, h/o "ulcer" @ [facility] - on PPI CRC screen - average risk -- No abd imaging, can check x-ray to start. Nurse says only interested in ice chips and water - will order clear liquid diet. Has PPI ordered - change to IV if needed. VLAD SMITH Feb 16, 2019 12:48
[2019-02-16] MEDS ORDERED: MULTIVIT INFUSN,ADULT 4,VIT K 10 ML, THIAMINE INJ 100 MG, FOLIC ACID INJ 1 MG in IV NOR... IV ONE (13:00)
[2019-02-16] MEDS: VENLAFAXINE 50 MG TABLET. PO SCH ×2 (13:18→19:44)
[2019-02-16] MEDS: cefTRIAXone IV Push 1 GM VIAL. IVP SCH (13:18)
[2019-02-16] MEDS: PANTOPRAZOLE 40 MG TABLET.DR. PO SCH (13:18)
[2019-02-16] MEDS: CETIRIZINE HCL 10 MG TABLET. PO SCH (13:18)
[2019-02-16] MEDS: ONDANSETRON PF 4 MG/2 ML VIAL. IV PRN (13:19)
[2019-02-16 15:29] VITALS: BP 155/81
--- NOTE | 2019-02-16 16:45 | RAD ---
RENAL COMPLETE BILATERAL DATE: 02/16/2019 11:58 AM INDICATION: Acute renal injury. Renal lesion on CT COMPARISON: 01/04/2019 TECHNIQUE: Multiple transverse longitudinal grayscale images of the kidneys and urinary bladder with color Doppler as appropriate. FINDINGS: The kidneys are normal in size and echogenicity. The right kidney measures 13.6 cm. The left kidney measures 12.2 cm. No hydronephrosis or shadowing calculi seen on either side. In the interpolar region of the right kidney is a 1.8 cm cyst with a thin septation and no abnormal vascularity, which corresponds to the abnormality seen on the prior CT. The urinary bladder is low volume without focal abnormality. The visualized portions of the abdominal aorta and IVC are normal in caliber. IMPRESSION: 1. Normal size and echogenicity of the kidneys. 2. Minimally complex right renal cyst measuring 1.8 cm, which corresponds to the abnormality seen on the prior CT. Electronically signed by: Felix Handy MD (02/16/2019 4:42 PM) [email or web address]
--- NOTE | 2019-02-16 17:42 | RAD ---
ACUTE ABDOMEN SERIES History: Nausea and vomiting. Technique: Upright and supine views of the abdomen. Comparison: CT January 04, 2019. Findings: No consolidation or pleural effusion. Normal heart size. No pneumoperitoneum. Minimal small bowel gas. No air-fluid levels. Air and stool scattered throughout the imaged colon. Impression: 1. Nonobstructed bowel gas pattern. Electronically signed by: Shaun Corona DO (02/16/2019 5:40 PM) [id number]
[2019-02-16 19:15] VITALS: BP 191/113
[2019-02-16] MEDS: traMADol 50 MG TABLET PO SCH (19:44)
[2019-02-16 23:05] VITALS: BP 139/90
[2019-02-17 02:20] VITALS: BP 135/88
[2019-02-17 04:50] LABS: BASO % 0 % (0-3); EOS # 0.1 x10^3/uL (0.0-0.7); EOS % 1 % (0-3); HEMOGLOBIN 14.6 g/dL (12.0-15.5); LYMPH # 5.3 x10^3/uL (1.0-4.8); LYMPH % 31 % (24-48); MEAN CORPUSCULAR HEMOGLOBIN 33 pg (25-35); MEAN CORPUSCULAR HGB CONC 34 g/dL (31-37); MEAN CORPUSCULAR VOLUME 97 fL (79-100); MONO # 1.3 x10^3/uL (0.0-1.1); MONO % 8 % (0-9); NEUT # 10.5 x10^3/uL (1.8-7.7); NEUT % 61 % (31-73); PLATELET COUNT 365 x10^3/uL (140-400); RED BLOOD COUNT 4.44 x10^6/uL (3.50-5.40); RED CELL DISTRIBUTION WIDTH 14.8 % (11.5-14.5); WHITE BLOOD COUNT 17.2 x10^3/uL (4.0-11.0)
[2019-02-17 05:16] LABS: ALBUMIN 3.3 g/dL (3.4-5.0); ALBUMIN/GLOBULIN RATIO 0.8 (1.0-1.7); CALCIUM 9.3 mg/dL (8.5-10.1); CREATININE 1.6 mg/dL (0.6-1.0); GFR 36.3; TOTAL BILIRUBIN 0.4 mg/dL (0.2-1.0); TOTAL PROTEIN 7.4 g/dL (6.4-8.2)
[2019-02-17 05:19] LABS: POTASSIUM 2.8 mmol/L (3.5-5.1)
[2019-02-17] MEDS: POTASSIUM CHLORIDE 10MEQ 100 ML IV SCH ×6 (06:17→17:55)
[2019-02-17] MEDS ORDERED: POTASSIUM CHLORIDE 20 MEQ TABLET.ER. PO ONE (06:30)
[2019-02-17] MEDS: ONDANSETRON PF 4 MG/2 ML VIAL. IV PRN ×2 (06:37→21:45)
[2019-02-17 07:00] VITALS: BP 150/95
[2019-02-17] MEDS: PANTOPRAZOLE 40 MG TABLET.DR. PO SCH (08:02)
[2019-02-17] MEDS: ENOXAPARIN 40 MG/0.4 ML SYRINGE. SQ SCH (09:09)
[2019-02-17] MEDS: CETIRIZINE HCL 10 MG TABLET. PO SCH (09:10)
[2019-02-17] MEDS: traMADol 50 MG TABLET PO SCH (09:10)
[2019-02-17] MEDS: VENLAFAXINE 50 MG TABLET. PO SCH ×3 (09:10→20:23)
[2019-02-17 11:00] VITALS: BP 161/88
--- NOTE | 2019-02-17 11:06 | PDOC ---
Objective: Objective: D/w nurse - refused breakfast, says just looking at it made her feel sick. Might have vomited a little overnight. Reports abd pain. Vital Signs: Vital Signs Date Time Temp Pulse Resp B/P (MAP) Pulse Ox O2 Delivery O2 Flow Rate FiO2 02/17/19 09:10 16 Room Air 02/17/19 07:00 98.2 77 150/95 (113) 96 98.2 Labs: Laboratory Tests Test 02/17/19 04:30 White Blood Count 17.2 x10^3/uL Red Blood Count 4.44 x10^6/uL Hemoglobin 14.6 g/dL Hematocrit 43.0 % Mean Corpuscular Volume 97 fL Mean Corpuscular Hemoglobin 33 pg Mean Corpuscular Hemoglobin Concent 34 g/dL Red Cell Distribution Width 14.8 % Platelet Count 365 x10^3/uL Neutrophils (%) (Auto) 61 % Lymphocytes (%) (Auto) 31 % Monocytes (%) (Auto) 8 % Eosinophils (%) (Auto) 1 % Basophils (%) (Auto) 0 % Neutrophils # (Auto) 10.5 x10^3/uL Lymphocytes # (Auto) 5.3 x10^3/uL Monocytes # (Auto) 1.3 x10^3/uL Eosinophils # (Auto) 0.1 x10^3/uL Basophils # (Auto) 0.0 x10^3/uL Sodium Level 145 mmol/L Potassium Level 2.8 mmol/L Chloride Level 104 mmol/L Carbon Dioxide Level 31 mmol/L Anion Gap 10 Blood Urea Nitrogen 12 mg/dL Creatinine 1.6 mg/dL Estimated GFR (Cockcroft-Gault) 36.3 BUN/Creatinine Ratio 8 Glucose Level 100 mg/dL Calcium Level 9.3 mg/dL Total Bilirubin 0.4 mg/dL Aspartate Amino Transf (AST/SGOT) 17 U/L Alanine Aminotransferase (ALT/SGPT) 17 U/L Alkaline Phosphatase 74 U/L Total Protein 7.4 g/dL Albumin 3.3 g/dL Albumin/Globulin Ratio 0.8 Imaging: [facility]AS 02/16 Impression: 1. Nonobstructed bowel gas pattern. Renal US 02/16 IMPRESSION: 1. Normal size and echogenicity of the kidneys. 2. Minimally complex right renal cyst measuring 1.8 cm, which corresponds to the abnormality seen on the prior CT. PE: GEN: NAD NEURO/PSYCH: sleeping w/ head at the foot of the bed, not disturbed A/P: Migraine, n/v, h/o CVS Leukocytosis, RONIT - better Hypokalemia -- Not eating, ?still vomiting - try IV PPI. ?additional imaging VLAD SMITH Feb 17, 2019 11:06
--- NOTE | 2019-02-17 11:46 | NUR ---
SS following for discharge planning. SS reviewed pt chart. Pt is from home and is currently on room air. SS will continue to follow for discharge planning.
--- NOTE | 2019-02-17 12:16 | PDOC ---
PROGRESS NOTES Chief Complaint Chief Complaint Intractable vomiting - IV antiemetics 1.6 cm abnormality within the midpole of the right kidney, perhaps a complex cyst versus neoplasm. Further evaluation with renal ultrasound, [address] scan, or renal MRI would yield clarity. ON RECENT CT Acute renal injury - likely vasomotor nephropathy - cyst as above. Nephrology consulted. IVF improving condition Severe hypokalemia HYPOMAGNESEMIA Leukocytosis likely sec to prolonged vomiting - improving Obesity THC ABUSE DIABETES HYPERTENSION sirs History of Present Illness History of Present Illness 39 y/o female who reports h/o cyclic vomiting since childhood. Episodes of n/v are now less frequent (maybe twice yearly) and are precipitated by migraines which is what she thinks happened this time. Says she didn't take her migraine pills soon enough and n/v began day prior to admit. Then she laid down, her back popped, and pain radiated around to front/upper abdomen. Pain has resolved and she is currently tolerating ice chips. In between episodes, she has extended periods without nausea/vomiting. No dysphagia but does hurt to swallow a little bit right now. Prior EGD at [facility] 2 years ago. Daily marijuana - says she uses for chronic pain and HTN. K is 2.8, still vomiting. She is drowsy today. Cr. down to 1.6. Lost IV access. She does wish to go home, but continues to vomit. Vitals Vitals Vital Signs Date Time Temp Pulse Resp B/P (MAP) Pulse Ox O2 Delivery O2 Flow Rate FiO2 02/17/19 11:00 97.3 90 20 161/88 (112) 96 Room Air 97.3 Physical Exam General: Alert, Oriented X3, Cooperative, mild distress Abdomen: Normal bowel sounds, Soft, No tenderness Extremities: No cyanosis Labs LABS Laboratory Tests Test 02/17/19 04:30 White Blood Count 17.2 x10^3/uL (4.0-11.0) Red Blood Count 4.44 x10^6/uL (3.50-5.40) Hemoglobin 14.6 g/dL (12.0-15.5) Hematocrit 43.0 % (36.0-47.0) Mean Corpuscular Volume 97 fL (79-100) Mean Corpuscular Hemoglobin 33 pg (25-35) Mean Corpuscular Hemoglobin Concent 34 g/dL (31-37) Red Cell Distribution Width 14.8 % (11.5-14.5) Platelet Count 365 x10^3/uL (140-400) Neutrophils (%) (Auto) 61 % (31-73) Lymphocytes (%) (Auto) 31 % (24-48) Monocytes (%) (Auto) 8 % (0-9) Eosinophils (%) (Auto) 1 % (0-3) Basophils (%) (Auto) 0 % (0-3) Neutrophils # (Auto) 10.5 x10^3/uL (1.8-7.7) Lymphocytes # (Auto) 5.3 x10^3/uL (1.0-4.8) Monocytes # (Auto) 1.3 x10^3/uL (0.0-1.1) Eosinophils # (Auto) 0.1 x10^3/uL (0.0-0.7) Basophils # (Auto) 0.0 x10^3/uL (0.0-0.2) Sodium Level 145 mmol/L (136-145) Potassium Level 2.8 mmol/L (3.5-5.1) Chloride Level 104 mmol/L (98-107) Carbon Dioxide Level 31 mmol/L (21-32) Anion Gap 10 (6-14) Blood Urea Nitrogen 12 mg/dL (7-20) Creatinine 1.6 mg/dL (0.6-1.0) Estimated GFR (Cockcroft-Gault) 36.3 BUN/Creatinine Ratio 8 (6-20) Glucose Level 100 mg/dL (70-99) Calcium Level 9.3 mg/dL (8.5-10.1) Total Bilirubin 0.4 mg/dL (0.2-1.0) Aspartate Amino Transf (AST/SGOT) 17 U/L (15-37) Alanine Aminotransferase (ALT/SGPT) 17 U/L (14-59) Alkaline Phosphatase 74 U/L (46-116) Total Protein 7.4 g/dL (6.4-8.2) Albumin 3.3 g/dL (3.4-5.0) Albumin/Globulin Ratio 0.8 (1.0-1.7) Assessment and Plan Assessmemt and Plan Problems Medical Problems: (1) Cyclic vomiting syndrome Status: Acute (2) Hypokalemia Status: Acute Comment Review of Relevant I have reviewed the following items sadia (where applicable) has been applied. Labs Laboratory Tests Test 02/16/19 01:40 02/16/19 01:43 02/16/19 02:35 02/16/19 10:20 Urine Collection Type Void Urine Color Yellow Urine Clarity Clear Urine pH 8.5 Urine Specific [place] 1.015 Urine Protein Negative mg/dL (NEG-TRACE) Urine Glucose (UA) Negative mg/dL (NEG) Urine Ketones (Stick) Trace mg/dL (NEG) Urine Blood Negative (NEG) Urine Nitrite Negative (NEG) Urine Bilirubin Negative (NEG) Urine Urobilinogen Dipstick 0.2 mg/dL (0.2 mg/dL) Urine Leukocyte Esterase Negative (NEG) Urine RBC 6-10 /HPF (0-2) Urine WBC 5-10 /HPF (0-4) Urine Squamous Epithelial Cells Mod /LPF Urine Bacteria Few /HPF (0-FEW) Urine Hyaline Casts Moderate /HPF Bedside Urine HCG, Qualitative Hcg negative (Negative) White Blood Count 32.0 x10^3/uL (4.0-11.0) Red Blood Count 5.03 x10^6/uL (3.50-5.40) Hemoglobin 16.5 g/dL (12.0-15.5) Hematocrit 47.7 % (36.0-47.0) Mean Corpuscular Volume 95 fL (79-100) Mean Corpuscular Hemoglobin 33 pg (25-35) Mean Corpuscular Hemoglobin Concent 35 g/dL (31-37) Red Cell Distribution Width 14.6 % (11.5-14.5) Platelet Count 564 x10^3/uL (140-400) Neutrophils (%) (Auto) 84 % (31-73) Lymphocytes (%) (Auto) 9 % (24-48) Monocytes (%) (Auto) 6 % (0-9) Eosinophils (%) (Auto) 0 % (0-3) Basophils (%) (Auto) 0 % (0-3) Neutrophils # (Auto) 27.0 x10^3/uL (1.8-7.7) Lymphocytes # (Auto) 3.0 x10^3/uL (1.0-4.8) Monocytes # (Auto) 2.0 x10^3/uL (0.0-1.1) Eosinophils # (Auto) 0.0 x10^3/uL (0.0-0.7) Basophils # (Auto) 0.0 x10^3/uL (0.0-0.2) Segmented Neutrophils % 88 % (35-66) Band Neutrophils % 2 % (0-9) Lymphocytes % 7 % (24-48) Monocytes % 3 % (0-10) Toxic Vacuolation Slight Platelet Estimate Increased (ADEQUATE) Sodium Level 143 mmol/L (136-145) 146 mmol/L (136-145) Potassium Level 2.5 mmol/L (3.5-5.1) 3.3 mmol/L (3.5-5.1) Chloride Level 99 mmol/L (98-107) 104 mmol/L (98-107) Carbon Dioxide Level 25 mmol/L (21-32) 31 mmol/L (21-32) Anion Gap 19 (6-14) 11 (6-14) Blood Urea Nitrogen 17 mg/dL (7-20) 16 mg/dL (7-20) Creatinine 2.5 mg/dL (0.6-1.0) 2.0 mg/dL (0.6-1.0) Estimated GFR (Cockcroft-Gault) 21.7 28.0 BUN/Creatinine Ratio 7 (6-20) Glucose Level 214 mg/dL (70-99) 136 mg/dL (70-99) Calcium Level 10.9 mg/dL (8.5-10.1) 9.5 mg/dL (8.5-10.1) Magnesium Level 1.5 mg/dL (1.8-2.4) 2.5 mg/dL (1.8-2.4) Total Bilirubin 0.8 mg/dL (0.2-1.0) Aspartate Amino Transf (AST/SGOT) 26 U/L (15-37) Alanine Aminotransferase (ALT/SGPT) 17 U/L (14-59) Alkaline Phosphatase 92 U/L (46-116) Total Protein 9.0 g/dL (6.4-8.2) Albumin 4.2 g/dL (3.4-5.0) Albumin/Globulin Ratio 0.9 (1.0-1.7) Test 02/17/19 04:30 White Blood Count 17.2 x10^3/uL (4.0-11.0) Red Blood Count 4.44 x10^6/uL (3.50-5.40) Hemoglobin 14.6 g/dL (12.0-15.5) Hematocrit 43.0 % (36.0-47.0) Mean Corpuscular Volume 97 fL (79-100) Mean Corpuscular Hemoglobin 33 pg (25-35) Mean Corpuscular Hemoglobin Concent 34 g/dL (31-37) Red Cell Distribution Width 14.8 % (11.5-14.5) Platelet Count 365 x10^3/uL (140-400) Neutrophils (%) (Auto) 61 % (31-73) Lymphocytes (%) (Auto) 31 % (24-48) Monocytes (%) (Auto) 8 % (0-9) Eosinophils (%) (Auto) 1 % (0-3) Basophils (%) (Auto) 0 % (0-3) Neutrophils # (Auto) 10.5 x10^3/uL (1.8-7.7) Lymphocytes # (Auto) 5.3 x10^3/uL (1.0-4.8) Monocytes # (Auto) 1.3 x10^3/uL (0.0-1.1) Eosinophils # (Auto) 0.1 x10^3/uL (0.0-0.7) Basophils # (Auto) 0.0 x10^3/uL (0.0-0.2) Sodium Level 145 mmol/L (136-145) Potassium Level 2.8 mmol/L (3.5-5.1) Chloride Level 104 mmol/L (98-107) Carbon Dioxide Level 31 mmol/L (21-32) Anion Gap 10 (6-14) Blood Urea Nitrogen 12 mg/dL (7-20) Creatinine 1.6 mg/dL (0.6-1.0) Estimated GFR (Cockcroft-Gault) 36.3 BUN/Creatinine Ratio 8 (6-20) Glucose Level 100 mg/dL (70-99) Calcium Level 9.3 mg/dL (8.5-10.1) Total Bilirubin 0.4 mg/dL (0.2-1.0) Aspartate Amino Transf (AST/SGOT) 17 U/L (15-37) Alanine Aminotransferase (ALT/SGPT) 17 U/L (14-59) Alkaline Phosphatase 74 U/L (46-116) Total Protein 7.4 g/dL (6.4-8.2) Albumin 3.3 g/dL (3.4-5.0) Albumin/Globulin Ratio 0.8 (1.0-1.7) Laboratory Tests Test 02/17/19 04:30 White Blood Count 17.2 x10^3/uL (4.0-11.0) Red Blood Count 4.44 x10^6/uL (3.50-5.40) Hemoglobin 14.6 g/dL (12.0-15.5) Hematocrit 43.0 % (36.0-47.0) Mean Corpuscular Volume 97 fL (79-100) Mean Corpuscular Hemoglobin 33 pg (25-35) Mean Corpuscular Hemoglobin Concent 34 g/dL (31-37) Red Cell Distribution Width 14.8 % (11.5-14.5) Platelet Count 365 x10^3/uL (140-400) Neutrophils (%) (Auto) 61 % (31-73) Lymphocytes (%) (Auto) 31 % (24-48) Monocytes (%) (Auto) 8 % (0-9) Eosinophils (%) (Auto) 1 % (0-3) Basophils (%) (Auto) 0 % (0-3) Neutrophils # (Auto) 10.5 x10^3/uL (1.8-7.7) Lymphocytes # (Auto) 5.3 x10^3/uL (1.0-4.8) Monocytes # (Auto) 1.3 x10^3/uL (0.0-1.1) Eosinophils # (Auto) 0.1 x10^3/uL (0.0-0.7) Basophils # (Auto) 0.0 x10^3/uL (0.0-0.2) Sodium Level 145 mmol/L (136-145) Potassium Level 2.8 mmol/L (3.5-5.1) Chloride Level 104 mmol/L (98-107) Carbon Dioxide Level 31 mmol/L (21-32) Anion Gap 10 (6-14) Blood Urea Nitrogen 12 mg/dL (7-20) Creatinine 1.6 mg/dL (0.6-1.0) Estimated GFR (Cockcroft-Gault) 36.3 BUN/Creatinine Ratio 8 (6-20) Glucose Level 100 mg/dL (70-99) Calcium Level 9.3 mg/dL (8.5-10.1) Total Bilirubin 0.4 mg/dL (0.2-1.0) Aspartate Amino Transf (AST/SGOT) 17 U/L (15-37) Alanine Aminotransferase (ALT/SGPT) 17 U/L (14-59) Alkaline Phosphatase 74 U/L (46-116) Total Protein 7.4 g/dL (6.4-8.2) Albumin 3.3 g/dL (3.4-5.0) Albumin/Globulin Ratio 0.8 (1.0-1.7) Medications Current Medications Sodium Chloride 1,000 ml @ 1,000 mls/hr 1X ONCE IV Last administered on 02/16/19at 02:49; Start 02/16/19 at 02:15; Stop 02/16/19 at 03:14; Status DC Ondansetron HCl (Zofran) 4 mg 1X ONCE IV Last administered on 02/16/19at 02:50; Start 02/16/19 at 02:15; Stop 02/16/19 at 02:16; Status DC Haloperidol Lactate (Haldol Inj) 2.5 mg 1X ONCE IVP Last administered on 02/16/19at 02:51; Start 02/16/19 at 02:30; Stop 02/16/19 at 02:31; Status DC Magnesium Sulfate 50 ml @ 25 mls/hr 1X ONCE IV Last administered on 02/16/19at 03:34; Start 02/16/19 at 03:30; Stop 02/16/19 at 05:29; Status DC Potassium Chloride/Water 100 ml @ 100 mls/hr Q1H IV Last administered on 02/16/19at 08:55; Start 02/16/19 at 04:00; Stop 02/16/19 at 07:59; Status DC Ondansetron HCl (Zofran) 4 mg PRN Q8HRS PRN IV NAUSEA/VOMITING Last administered on 02/16/19at 19:43; Start 02/16/19 at 03:15; Stop 02/17/19 at 03:14; Status DC Sodium Chloride 1,000 ml @ 100 mls/hr 1X ONCE IV Last administered on 02/16/19at 06:30; Start 02/16/19 at 03:30; Stop 02/16/19 at 13:29; Status DC Tramadol HCl (Ultram) 50 mg BID PO Last administered on 02/17/19at 09:10; Start 02/16/19 at 21:00 Cetirizine HCl (ZyrTEC) 10 mg DAILY PO Last administered on 02/17/19at 09:10; Start 02/16/19 at 13:00 Pantoprazole Sodium (Protonix) 40 mg DAILYAC PO Last administered on 02/17/19at 08:02; Start 02/16/19 at 13:00; Stop 02/17/19 at 11:07; Status DC Venlafaxine HCl (Effexor) 50 mg TID PO Last administered on 02/17/19at 09:10; Start 02/16/19 at 14:00 Sodium Chloride (Normal Saline Flush) 3 ml QSHIFT PRN IV AFTER MEDS AND BLOOD DRAWS; Start 02/16/19 at 12:15 Multivitamins 10 ml/Thiamine HCl 100 mg/Folic Acid 1 mg/Sodium Chloride 1,011.2 ml @ 125 mls/ hr 1X ONCE IV Last administered on 02/16/19at 13:19; Start 02/16/19 at 13:00; Stop 02/16/19 at 21:05; Status DC Ondansetron HCl (Zofran) 4 mg PRN Q4HRS PRN IV NAUSEA/VOMITING Last administered on 02/17/19at 06:37; Start 02/16/19 at 12:15 Acetaminophen (Tylenol) 650 mg PRN Q4HRS PRN PO TEMP OVER 100.4F OR MILD PAIN; Start 02/16/19 at 12:15 Clonidine HCl (Catapres) 0.1 mg PRN Q6HRS PRN PO SBP>160 OR DBP>90; Start 02/16/19 at 12:15 Docusate Sodium (Colace) 100 mg PRN BID PRN PO HARD STOOLS; Start 02/16/19 at 12:15 Albuterol Sulfate (Ventolin Neb Soln) 2.5 mg PRN Q4HRS PRN NEB SHORTNESS OF BREATH; Start 02/16/19 at 12:15 Guaifenesin (Robitussin) 200 mg PRN Q4HRS PRN PO COUGH 1ST CHOICE; Start 02/16/19 at 12:15 Lorazepam (Ativan) 0.5 mg PRN Q4HRS PRN PO ANXIETY / AGITATION; Start 02/16/19 at 12:15 Lorazepam (Ativan Inj) 2 mg PRN Q4HRS PRN IV ANXIETY / AGITATION Last administered on 02/17/19at 09:03; Start 02/16/19 at 12:15 Enoxaparin Sodium (Lovenox 40mg Syringe) 40 mg DAILY SQ Last administered on 02/17/19at 09:09; Start 02/17/19 at 09:00 Ceftriaxone Sodium (Rocephin) 1 gm Q24H IVP Last administered on 02/16/19at 13:18; Start 02/16/19 at 13:00 Haloperidol Lactate (Haldol Inj) 3 mg PRN 1X ONCE IVP ; Start 02/16/19 at 15:15; Stop 02/16/19 at 15:16; Status DC Potassium Chloride/Water 100 ml @ 100 mls/hr Q1H IV Last administered on 02/17/19at 11:17; Start 02/17/19 at 07:00; Stop 02/17/19 at 10:59; Status DC Potassium Chloride (Klor-Con) 40 meq 1X ONCE PO Last administered on 02/17/19at 06:16; Start 02/17/19 at 06:30; Stop 02/17/19 at 06:31; Status DC Pantoprazole Sodium (PROTONIX VIAL for IV PUSH) 40 mg DAILYAC IVP ; Start 02/18/19 at 07:30 Metoclopramide HCl (Reglan Vial) 5 mg PRN Q6HRS PRN IVP NAUSEA/VOMITING; Start 02/17/19 at 12:15; Status UNV Potassium Chloride/Water 100 ml @ 100 mls/hr Q1H IV ; Start 02/17/19 at 12:15; Stop 02/17/19 at 14:14; Status UNV Active Scripts Active Ondansetron Odt (Ondansetron) 4 Mg Tab.rapdis 1 Tab PO PRN Q6-8HRS Reported Effexor Xr (Venlafaxine Hcl) 150 Mg Cap.er.24h 1 Cap PO DAILY Imitrex (Sumatriptan Succinate) 50 Mg Tablet 50 Mg PO ONCE PRN Zanaflex (Tizanidine Hcl) 4 Mg Capsule 2 Mg PO TID PRN Hydrocodone-Apap 5-325 (Hydrocodone Bit/Acetaminophen) 1 Each Tablet 1 Tab PO PRN Q6HRS PRN Omeprazole 40 Mg Capsule.dr 40 Mg PO DAILY Hydrochlorothiazide Capsule (Hydrochlorothiazide) 12.5 Mg Capsule 12.5 Mg PO DAILY Tramadol Hcl 50 Mg Tablet 50 Mg PO BID Zyrtec (Cetirizine Hcl) 10 Mg Capsule 10 Mg PO DAILY Vitals/I & O Vital Sign - Last 24 Hours 02/16/19 02/16/19 02/16/19 02/16/19 15:29 18:09 19:15 19:44 Temp 98.0 98.1 98.0 98.1 Pulse 106 101 Resp 24 18 B/P (MAP) 155/81 (105) 191/113 (139) Pulse Ox 98 98 96 98 O2 Delivery Room Air Room Air Room Air Room Air 02/16/19 02/16/19 02/16/19 02/17/19 20:00 20:44 23:05 02:20 Temp 98.5 97.7 98.5 97.7 Pulse 107 95 Resp 18 20 B/P (MAP) 139/90 (106) 135/88 (104) Pulse Ox 98 97 97 O2 Delivery Room Air Room Air Room Air Room Air 02/17/19 02/17/19 02/17/19 02/17/19 07:00 08:00 09:10 10:10 Temp 98.2 98.2 Pulse 77 Resp 20 16 16 B/P (MAP) 150/95 (113) Pulse Ox 96 O2 Delivery Room Air Room Air Room Air Room Air 02/17/19 11:00 Temp 97.3 97.3 Pulse 90 Resp 20 B/P (MAP) 161/88 (112) Pulse Ox 96 O2 Delivery Room Air Intake and Output 02/16/19 02/16/19 02/17/19 15:00 23:00 07:00 Intake Total 960 ml Output Total 200 ml 200 ml 800 ml Balance -200 ml -200 ml 160 ml FERNANDO AREVALO MD Feb 17, 2019 12:15
[2019-02-17] MEDS: LIDOCAINE (700MG/PATCH) PATCH. TD SCH (12:45)
[2019-02-17] MEDS: METOCLOPRAMIDE HCL 10 MG/2 ML VIAL. IVP PRN ×2 (13:11→20:24)
[2019-02-17] MEDS: cefTRIAXone IV Push 1 GM VIAL. IVP SCH (13:13)
[2019-02-17 15:00] VITALS: BP 135/80
[2019-02-17] MEDS ORDERED: IV NORMAL SALINE 1000ML BAG 1,000 ML IV ONE (15:45)
--- NOTE | 2019-02-17 15:46 | PDOC2 ---
CONSULT Date of Consult Date of Consult DATE: 02/17/19 TIME: 15:39 Reason for Consult Reason for Consult: RONIT Referring Physician Referring Physician: IRINA Identification/Chief Complaint Chief Complaint N/V Source Source: Chart review, Patient History of Present Illness Reason for Visit: THIS IS A 39 YR OLD WITH HX OF CYCLIC VOMITING. ADMITTED WITH N/V AND ABD PAIN. ALSO HAD ONE EPISODE OF DIARRHEA. SEEING GI. CR OF 2.5. NO HX OF CKD. NOT BEEN ABLE TO KEEP ANYTHING DOWN. HAS ALSO HAD SOME HUYNH AND HAS BEEN USING MARIJUANA FREQUENTLY. Past Medical History GI: Other (cyclic vomiting) Psych: Addictions Family History Family History: High Cholestrol Social History No ALCOHOL: none Drugs: Marijuana Current Problem List Problem List Problems Medical Problems: (1) Cyclic vomiting syndrome Status: Acute (2) Hypokalemia Status: Acute Current Medications Current Medications Current Medications Sodium Chloride 1,000 ml @ 1,000 mls/hr 1X ONCE IV Last administered on 12/26at 02:49; Start 02/16/19 at 02:15; Stop 02/16/19 at 03:14; Status DC Ondansetron HCl (Zofran) 4 mg 1X ONCE IV Last administered on 02/16/19at 02:50; Start 02/16/19 at 02:15; Stop 02/16/19 at 02:16; Status DC Haloperidol Lactate (Haldol Inj) 2.5 mg 1X ONCE IVP Last administered on 02/16/19at 02:51; Start 02/16/19 at 02:30; Stop 02/16/19 at 02:31; Status DC Magnesium Sulfate 50 ml @ 25 mls/hr 1X ONCE IV Last administered on 02/16/19at 03:34; Start 02/16/19 at 03:30; Stop 02/16/19 at 05:29; Status DC Potassium Chloride/Water 100 ml @ 100 mls/hr Q1H IV Last administered on 02/16/19at 08:55; Start 02/16/19 at 04:00; Stop 02/16/19 at 07:59; Status DC Ondansetron HCl (Zofran) 4 mg PRN Q8HRS PRN IV NAUSEA/VOMITING Last administered on 02/16/19at 19:43; Start 02/16/19 at 03:15; Stop 02/17/19 at 03:14; Status DC Sodium Chloride 1,000 ml @ 100 mls/hr 1X ONCE IV Last administered on 02/16/19at 06:30; Start 02/16/19 at 03:30; Stop 02/16/19 at 13:29; Status DC Tramadol HCl (Ultram) 50 mg BID PO Last administered on 02/17/19at 09:10; Start 02/16/19 at 21:00 Cetirizine HCl (ZyrTEC) 10 mg DAILY PO Last administered on 02/17/19at 09:10; Start 02/16/19 at 13:00 Pantoprazole Sodium (Protonix) 40 mg DAILYAC PO Last administered on 02/17/19at 08:02; Start 02/16/19 at 13:00; Stop 02/17/19 at 11:07; Status DC Venlafaxine HCl (Effexor) 50 mg TID PO Last administered on 02/17/19at 09:10; Start 02/16/19 at 14:00 Sodium Chloride (Normal Saline Flush) 3 ml QSHIFT PRN IV AFTER MEDS AND BLOOD DRAWS; Start 02/16/19 at 12:15 Multivitamins 10 ml/Thiamine HCl 100 mg/Folic Acid 1 mg/Sodium Chloride 1,011.2 ml @ 125 mls/ hr 1X ONCE IV Last administered on 02/16/19at 13:19; Start 02/16/19 at 13:00; Stop 02/16/19 at 21:05; Status DC Ondansetron HCl (Zofran) 4 mg PRN Q4HRS PRN IV NAUSEA/VOMITING Last administered on 02/17/19at 06:37; Start 02/16/19 at 12:15 Acetaminophen (Tylenol) 650 mg PRN Q4HRS PRN PO TEMP OVER 100.4F OR MILD PAIN; Start 02/16/19 at 12:15 Clonidine HCl (Catapres) 0.1 mg PRN Q6HRS PRN PO SBP>160 OR DBP>90; Start 02/16/19 at 12:15 Docusate Sodium (Colace) 100 mg PRN BID PRN PO HARD STOOLS; Start 02/16/19 at 12:15 Albuterol Sulfate (Ventolin Neb Soln) 2.5 mg PRN Q4HRS PRN NEB SHORTNESS OF BREATH; Start 02/16/19 at 12:15 Guaifenesin (Robitussin) 200 mg PRN Q4HRS PRN PO COUGH 1ST CHOICE; Start 02/16/19 at 12:15 Lorazepam (Ativan) 0.5 mg PRN Q4HRS PRN PO ANXIETY / AGITATION; Start 02/16/19 at 12:15 Lorazepam (Ativan Inj) 2 mg PRN Q4HRS PRN IV ANXIETY / AGITATION Last adm inistered on 02/17/19at 15:17; Start 02/16/19 at 12:15 Enoxaparin Sodium (Lovenox 40mg Syringe) 40 mg DAILY SQ Last administered on 02/17/19at 09:09; Start 02/17/19 at 09:00 Ceftriaxone Sodium (Rocephin) 1 gm Q24H IVP Last administered on 02/17/19at 13 :13; Start 02/16/19 at 13:00 Haloperidol Lactate (Haldol Inj) 3 mg PRN 1X ONCE IVP ; Start 02/16/19 at 15:15; Stop 02/16/19 at 15:16; Status DC Potassium Chloride/Water 100 ml @ 100 mls/hr Q1H IV Last administered on 02/17/19at 14:33; Start 02/17/19 at 07:00; Stop 02/17/19 at 10:59; Status DC Potassium Chloride (Klor-Con) 40 meq 1X ONCE PO Last administered on 02/17/19a t 06:16; Start 02/17/19 at 06:30; Stop 02/17/19 at 06:31; Status DC Pantoprazole Sodium (PROTONIX VIAL for IV PUSH) 40 mg DAILYAC IVP ; Start 02/18/19 at 07:30 Metoclopramide HCl (Reglan Vial) 5 mg PRN Q6HRS PRN IVP NAUSEA/VOMITING Last administered on 02/17/19at 13:11; Start 02/17/19 at 12:15 Potassium Chloride/Water 100 ml @ 100 mls/hr Q1H IV ; Start 02/17/19 at 12:30; Stop 02/17/19 at 14:29; Status DC Lidocaine (Lidoderm) 1 patch DAILY TD ; Start 02/17/19 at 12:45 Miscellaneous (Lidoderm Patch Removal) 1 ea QHS MC ; Start 02/17/19 at 21:00 Active Scripts Active Ondansetron Odt (Ondansetron) 4 Mg Tab.rapdis 1 Tab PO PRN Q6-8HRS Reported Effexor Xr (Venlafaxine Hcl) 150 Mg Cap.er.24h 1 Cap PO DAILY Imitrex (Sumatriptan Succinate) 50 Mg Tablet 50 Mg PO ONCE PRN Zanaflex (Tizanidine Hcl) 4 Mg Capsule 2 Mg PO TID PRN Hydrocodone-Apap 5-325 (Hydrocodone Bit/Acetaminophen) 1 Each Tablet 1 Tab PO PRN Q6HRS PRN Omeprazole 40 Mg Capsule.dr 40 Mg PO DAILY Hydrochlorothiazide Capsule (Hydrochlorothiazide) 12.5 Mg Capsule 12.5 Mg PO DAILY Tramadol Hcl 50 Mg Tablet 50 Mg PO BID Zyrtec (Cetirizine Hcl) 10 Mg Capsule 10 Mg PO DAILY Allergies Allergies: Coded Allergies: pregabalin (Verified Allergy, Intermediate, Itching, 04/17/16) lisinopril (Verified Adverse Reaction, Intermediate, 04/17/16) SEVERE COUGHING ROS General: YES: Fatigue, Appetite PSYCHOLOGICAL ROS: YES: Anxiety, Depression Eyes: Yes Decreased vision HEENT: YES: Heacaches Gastrointestinal: Yes Nausea, Yes Vomiting, Yes Abdominal Pain, Yes Diarrhea Musculoskeletal: Yes Muscular Weakness Neurological: Yes Weakness Skin: Yes Dry Skin Physical Exam General: Alert, Oriented X3, No acute distress, moderate distress HEENT: Atraumatic, PERRLA, EOMI, Mucous membr. moist/pink Lungs: Clear to auscultation Heart: Regular rate, Normal S1, Normal S2 Abdomen: Normal bowel sounds, Soft, No tenderness, No hepatosplenomegaly Extremities: No cyanosis Skin: No breakdown Neuro: Normal speech, Cranial nerves 3-12 NL Psych/Mental Status: Mental status NL, Mood NL MUSCULOSKELETAL: No joint tenderness, No deformity, No swelling Vitals VITALS Vital Signs Date Time Temp Pulse Resp B/P (MAP) Pulse Ox O2 Delivery O2 Flow Rate FiO2 02/17/19 11:00 97.3 90 20 161/88 (112) 96 Room Air 97.3 Labs Labs Laboratory Tests Test 02/16/19 01:40 02/16/19 01:43 02/16/19 02:35 02/16/19 10:20 Urine Collection Type Void Urine Color Yellow Urine Clarity Clear Urine pH 8.5 Urine Specific Mobile 1.015 Urine Protein Negative mg/dL (NEG-TRACE) Urine Glucose (UA) Negative mg/dL (NEG) Urine Ketones (Stick) Trace mg/dL (NEG) Urine Blood Negative (NEG) Urine Nitrite Negative (NEG) Urine Bilirubin Negative (NEG) Urine Urobilinogen Dipstick 0.2 mg/dL (0.2 mg/dL) Urine Leukocyte Esterase Negative (NEG) Urine RBC 6-10 /HPF (0-2) Urine WBC 5-10 /HPF (0-4) Urine Squamous Epithelial Cells Mod /LPF Urine Bacteria Few /HPF (0-FEW) Urine Hyaline Casts Moderate /HPF Bedside Urine HCG, Qualitative Hcg negative (Negative) White Blood Count 32.0 x10^3/uL (4.0-11.0) Red Blood Count 5.03 x10^6/uL (3.50-5.40) Hemoglobin 16.5 g/dL (12.0-15.5) Hematocrit 47.7 % (36.0-47.0) Mean Corpuscular Volume 95 fL (79-100) Mean Corpuscular Hemoglobin 33 pg (25-35) Mean Corpuscular Hemoglobin Concent 35 g/dL (31-37) Red Cell Distribution Width 14.6 % (11.5-14.5) Platelet Count 564 x10^3/uL (140-400) Neutrophils (%) (Auto) 84 % (31-73) Lymphocytes (%) (Auto) 9 % (24-48) Monocytes (%) (Auto) 6 % (0-9) Eosinophils (%) (Auto) 0 % (0-3) Basophils (%) (Auto) 0 % (0-3) Neutrophils # (Auto) 27.0 x10^3/uL (1.8-7.7) Lymphocytes # (Auto) 3.0 x10^3/uL (1.0-4.8) Monocytes # (Auto) 2.0 x10^3/uL (0.0-1.1) Eosinophils # (Auto) 0.0 x10^3/uL (0.0-0.7) Basophils # (Auto) 0.0 x10^3/uL (0.0-0.2) Segmented Neutrophils % 88 % (35-66) Band Neutrophils % 2 % (0-9) Lymphocytes % 7 % (24-48) Monocytes % 3 % (0-10) Toxic Vacuolation Slight Platelet Estimate Increased (ADEQUATE) Sodium Level 143 mmol/L (136-145) 146 mmol/L (136-145) Potassium Level 2.5 mmol/L (3.5-5.1) 3.3 mmol/L (3.5-5.1) Chloride Level 99 mmol/L (98-107) 104 mmol/L (98-107) Carbon Dioxide Level 25 mmol/L (21-32) 31 mmol/L (21-32) Anion Gap 19 (6-14) 11 (6-14) Blood Urea Nitrogen 17 mg/dL (7-20) 16 mg/dL (7-20) Creatinine 2.5 mg/dL (0.6-1.0) 2.0 mg/dL (0.6-1.0) Estimated GFR (Cockcroft-Gault) 21.7 28.0 BUN/Creatinine Ratio 7 (6-20) Glucose Level 214 mg/dL (70-99) 136 mg/dL (70-99) Calcium Level 10.9 mg/dL (8.5-10.1) 9.5 mg/dL (8.5-10.1) Magnesium Level 1.5 mg/dL (1.8-2.4) 2.5 mg/dL (1.8-2.4) Total Bilirubin 0.8 mg/dL (0.2-1.0) Aspartate Amino Transf (AST/SGOT) 26 U/L (15-37) Alanine Aminotransferase (ALT/SGPT) 17 U/L (14-59) Alkaline Phosphatase 92 U/L (46-116) Total Protein 9.0 g/dL (6.4-8.2) Albumin 4.2 g/dL (3.4-5.0) Albumin/Globulin Ratio 0.9 (1.0-1.7) Test 02/17/19 04:30 White Blood Count 17.2 x10^3/uL (4.0-11.0) Red Blood Count 4.44 x10^6/uL (3.50-5.40) Hemoglobin 14.6 g/dL (12.0-15.5) Hematocrit 43.0 % (36.0-47.0) Mean Corpuscular Volume 97 fL (79-100) Mean Corpuscular Hemoglobin 33 pg (25-35) Mean Corpuscular Hemoglobin Concent 34 g/dL (31-37) Red Cell Distribution Width 14.8 % (11.5-14.5) Platelet Count 365 x10^3/uL (140-400) Neutrophils (%) (Auto) 61 % (31-73) Lymphocytes (%) (Auto) 31 % (24-48) Monocytes (%) (Auto) 8 % (0-9) Eosinophils (%) (Auto) 1 % (0-3) Basophils (%) (Auto) 0 % (0-3) Neutrophils # (Auto) 10.5 x10^3/uL (1.8-7.7) Lymphocytes # (Auto) 5.3 x10^3/uL (1.0-4.8) Monocytes # (Auto) 1.3 x10^3/uL (0.0-1.1) Eosinophils # (Auto) 0.1 x10^3/uL (0.0-0.7) Basophils # (Auto) 0.0 x10^3/uL (0.0-0.2) Sodium Level 145 mmol/L (136-145) Potassium Level 2.8 mmol/L (3.5-5.1) Chloride Level 104 mmol/L (98-107) Carbon Dioxide Level 31 mmol/L (21-32) Anion Gap 10 (6-14) Blood Urea Nitrogen 12 mg/dL (7-20) Creatinine 1.6 mg/dL (0.6-1.0) Estimated GFR (Cockcroft-Gault) 36.3 BUN/Creatinine Ratio 8 (6-20) Glucose Level 100 mg/dL (70-99) Calcium Level 9.3 mg/dL (8.5-10.1) Total Bilirubin 0.4 mg/dL (0.2-1.0) Aspartate Amino Transf (AST/SGOT) 17 U/L (15-37) Alanine Aminotransferase (ALT/SGPT) 17 U/L (14-59) Alkaline Phosphatase 74 U/L (46-116) Total Protein 7.4 g/dL (6.4-8.2) Albumin 3.3 g/dL (3.4-5.0) Albumin/Globulin Ratio 0.8 (1.0-1.7) Laboratory Tests Test 02/17/19 04:30 White Blood Count 17.2 x10^3/uL (4.0-11.0) Red Blood Count 4.44 x10^6/uL (3.50-5.40) Hemoglobin 14.6 g/dL (12.0-15.5) Hematocrit 43.0 % (36.0-47.0) Mean Corpuscular Volume 97 fL (79-100) Mean Corpuscular Hemoglobin 33 pg (25-35) Mean Corpuscular Hemoglobin Concent 34 g/dL (31-37) Red Cell Distribution Width 14.8 % (11.5-14.5) Platelet Count 365 x10^3/uL (140-400) Neutrophils (%) (Auto) 61 % (31-73) Lymphocytes (%) (Auto) 31 % (24-48) Monocytes (%) (Auto) 8 % (0-9) Eosinophils (%) (Auto) 1 % (0-3) Basophils (%) (Auto) 0 % (0-3) Neutrophils # (Auto) 10.5 x10^3/uL (1.8-7.7) Lymphocytes # (Auto) 5.3 x10^3/uL (1.0-4.8) Monocytes # (Auto) 1.3 x10^3/uL (0.0-1.1) Eosinophils # (Auto) 0.1 x10^3/uL (0.0-0.7) Basophils # (Auto) 0.0 x10^3/uL (0.0-0.2) Sodium Level 145 mmol/L (136-145) Potassium Level 2.8 mmol/L (3.5-5.1) Chloride Level 104 mmol/L (98-107) Carbon Dioxide Level 31 mmol/L (21-32) Anion Gap 10 (6-14) Blood Urea Nitrogen 12 mg/dL (7-20) Creatinine 1.6 mg/dL (0.6-1.0) Estimated GFR (Cockcroft-Gault) 36.3 BUN/Creatinine Ratio 8 (6-20) Glucose Level 100 mg/dL (70-99) Calcium Level 9.3 mg/dL (8.5-10.1) Total Bilirubin 0.4 mg/dL (0.2-1.0) Aspartate Amino Transf (AST/SGOT) 17 U/L (15-37) Alanine Aminotransferase (ALT/SGPT) 17 U/L (14-59) Alkaline Phosphatase 74 U/L (46-116) Total Protein 7.4 g/dL (6.4-8.2) Albumin 3.3 g/dL (3.4-5.0) Albumin/Globulin Ratio 0.8 (1.0-1.7) Assessment/Plan Assessment/Plan IMP RONIT LOW K DEHYDRATION CYCLIC VOMITING MARIJUANA USE PLAN SUPPLEMENT K CHECK MAG HYDRATION WITH SALINE EXPECT FULL RECOVERY FROM [facility] WILL FOLLOW JYO RYAN MD Feb 17, 2019 15:46
[2019-02-17] MEDS ORDERED: traMADol 50 MG TABLET PO PRN (16:00)
[2019-02-17] MEDS ORDERED: TOPI50TA8 (16:08)
[2019-02-17] MEDS ORDERED: METH500T7 (16:08)
[2019-02-17] MEDS ORDERED: TIZA4TAB2 (16:08)
[2019-02-17] MEDS ORDERED: HYDR25TA10 (16:08)
[2019-02-17] MEDS ORDERED: METF500T16 (16:08)
[2019-02-17] MEDS ORDERED: LIRA0.6P (16:08)
[2019-02-17] MEDS ORDERED: PANT40TA6 PO (16:08)
[2019-02-17] MEDS ORDERED: PROP40TA (16:08)
[2019-02-17] MEDS ORDERED: NORT10CA (16:08)
--- NOTE | 2019-02-17 16:34 | RAD ---
Examination: ABDOMEN COMPLETE History: Abdominal pain, nausea and vomiting Comparison/Correlation: 12/27/2018 CT abdomen and pelvis with contrast Findings: Complete upper abdominal ultrasound exam was performed. Exam is limited due to patient's inability to hold her breath. Fatty infiltration of the liver is present. No biliary dilatation. Portal venous flow is normal. Gallbladder is normal with no evidence of cholelithiasis or findings of inflammation. Common bile duct is normal. Proximal pancreas is normal. Distal pancreas is obscured by bowel gas. Spleen is unremarkable measuring 9.4 cm longitudinal. Abdominal aorta is unremarkable. Inferior vena cava is unremarkable. No hydronephrosis. Right kidney measures 12.5 cm longitudinal. Left kidney measures 12 cm in longitudinal. Left kidney is not well visualized. Right renal cyst measuring up to 1.9 cm diameter is present. Septation of the right renal cyst is present. This appears to correspond with CT findings. Impression: Fatty infiltration of the liver. Right renal septated cyst. Interval follow-up in 8 months by ultrasound to assess stability is recommended. Electronically signed by: Harpreet Olsen MD (02/17/2019 4:31 PM) [facility]
[2019-02-17 18:43] VITALS: BP 146/85
[2019-02-17] MEDS: LACTOBACILLUS RHAMNOSUS GG 1 CAPSULE. PO SCH (20:23)
[2019-02-17] MEDS ORDERED: PATCH REMOVAL. MC SCH (21:00)
[2019-02-17 22:48] VITALS: BP 179/110
[2019-02-18 02:30] VITALS: BP 174/102
[2019-02-18 06:04] LABS: BASO % 0 % (0-3); EOS % 0 % (0-3); HEMATOCRIT 40.3 % (36.0-47.0); HEMOGLOBIN 13.6 g/dL (12.0-15.5); LYMPH # 3.5 x10^3/uL (1.0-4.8); LYMPH % 29 % (24-48); MEAN CORPUSCULAR HEMOGLOBIN 32 pg (25-35); MEAN CORPUSCULAR HGB CONC 34 g/dL (31-37); MEAN CORPUSCULAR VOLUME 96 fL (79-100); MONO # 0.7 x10^3/uL (0.0-1.1); MONO % 6 % (0-9); NEUT # 7.8 x10^3/uL (1.8-7.7); NEUT % 65 % (31-73); PLATELET COUNT 316 x10^3/uL (140-400); RED BLOOD COUNT 4.21 x10^6/uL (3.50-5.40); RED CELL DISTRIBUTION WIDTH 13.9 % (11.5-14.5)
[2019-02-18 06:17] LABS: CALCIUM 8.8 mg/dL (8.5-10.1); CREATININE 1.2 mg/dL (0.6-1.0); GFR 50.6; MAGNESIUM 2.1 mg/dL (1.8-2.4); PHOSPHORUS 3.3 mg/dL (2.6-4.7); POTASSIUM 3.3 mmol/L (3.5-5.1)
[2019-02-18 07:00] VITALS: BP 134/98
[2019-02-18] MEDS ORDERED: PANTOPRAZOLE IV PUSH 40 MG VIAL. IVP SCH (07:30)
[2019-02-18] MEDS: LIDOCAINE (700MG/PATCH) PATCH. TD SCH (08:36)
[2019-02-18] MEDS: ENOXAPARIN 40 MG/0.4 ML SYRINGE. SQ SCH (08:37)
[2019-02-18] MEDS: CETIRIZINE HCL 10 MG TABLET. PO SCH (08:37)
[2019-02-18] MEDS: VENLAFAXINE 50 MG TABLET. PO SCH (08:37)
[2019-02-18] MEDS: LACTOBACILLUS RHAMNOSUS GG 1 CAPSULE. PO SCH (08:37)
--- NOTE | 2019-02-18 10:27 | PDOC ---
Renal-Progress Notes Subjective Notes Notes NO NEW COMPLAINTS History of Present Illness Hx of present illness STABLE Vitals Vitals Vital Signs Date Time Temp Pulse Resp B/P (MAP) Pulse Ox O2 Delivery O2 Flow Rate FiO2 02/18/19 07:52 Room Air 02/18/19 07:00 97.5 86 18 134/98 (110) 99 97.5 Weight Weight [ ] I.O. Intake and Output Intake and Output 02/18/19 07:00 Intake Total 1600 ml Output Total 2100 ml Balance -500 ml Intake Oral 1600 ml Output Urine Total 1800 ml Emesis 300 ml Labs Labs Laboratory Tests Test 02/18/19 05:00 White Blood Count 12.0 x10^3/uL (4.0-11.0) Red Blood Count 4.21 x10^6/uL (3.50-5.40) Hemoglobin 13.6 g/dL (12.0-15.5) Hematocrit 40.3 % (36.0-47.0) Mean Corpuscular Volume 96 fL (79-100) Mean Corpuscular Hemoglobin 32 pg (25-35) Mean Corpuscular Hemoglobin Concent 34 g/dL (31-37) Red Cell Distribution Width 13.9 % (11.5-14.5) Platelet Count 316 x10^3/uL (140-400) Neutrophils (%) (Auto) 65 % (31-73) Lymphocytes (%) (Auto) 29 % (24-48) Monocytes (%) (Auto) 6 % (0-9) Eosinophils (%) (Auto) 0 % (0-3) Basophils (%) (Auto) 0 % (0-3) Neutrophils # (Auto) 7.8 x10^3/uL (1.8-7.7) Lymphocytes # (Auto) 3.5 x10^3/uL (1.0-4.8) Monocytes # (Auto) 0.7 x10^3/uL (0.0-1.1) Eosinophils # (Auto) 0.0 x10^3/uL (0.0-0.7) Basophils # (Auto) 0.0 x10^3/uL (0.0-0.2) Sodium Level 142 mmol/L (136-145) Potassium Level 3.3 mmol/L (3.5-5.1) Chloride Level 104 mmol/L (98-107) Carbon Dioxide Level 29 mmol/L (21-32) Anion Gap 9 (6-14) Blood Urea Nitrogen 8 mg/dL (7-20) Creatinine 1.2 mg/dL (0.6-1.0) Estimated GFR (Cockcroft-Gault) 50.6 Glucose Level 110 mg/dL (70-99) Calcium Level 8.8 mg/dL (8.5-10.1) Phosphorus Level 3.3 mg/dL (2.6-4.7) Magnesium Level 2.1 mg/dL (1.8-2.4) Micro Micro Microbiology 02/16/19 Urine Culture - Final, Complete 02/16/19 Urine Culture Result 1 (RESHMA) - Final, Complete Review of Systems Constitutional: yes: weakness, alert, oriented Ears/Nose/Throat: Yes: no symptom reported Eyes: Yes: no symptom reported Pulmonary: Yes no symptom reported Cardiovascular: Yes no symptom reported Gastrointestional: Yes: nausea, vomiting, diarrhea Genitourinary: Yes: no symptom reported Musculoskeletal: Yes: no symptom reported Skin: Yes no symptom reported Psychiatric/Neurological: Yes: no symptom reported Endocrine: Yes: no symptom reported Hematologic/Lymphatic: Yes: no symptom reported Physical Exam General Appearance: no apparent distress Skin: warm Respiratory: bilateral CTA Heart: S1S2 Abdomen: soft, bowel sounds present Genitourinary: bladder flat Extremities: pulses present Neurology: alert Assessment Assessment IMP RONIT-RESOLVING LOW K DEHYDRATION CYCLIC VOMITING MARIJUANA USE PLAN SUPPLEMENT K HYDRATION WITH SALINE EXPECT FULL RECOVERY FROM [facility] WILL FOLLOW JOY RYAN MD Feb 18, 2019 10:27
[2019-02-18] MEDS ORDERED: POTASSIUM CHLORIDE 30 MEQ in IV 1/2 NORMAL SALINE 1,000 ML IV ONE (10:30)
[2019-02-18 11:00] VITALS: BP 129/74
[2019-02-18] MEDS ORDERED: POTASSIUM CHLORIDE 20 MEQ TABLET.ER. PO ONE (11:00)
--- NOTE | 2019-02-18 11:18 | PDOC ---
Hemodynamically unstable?: No Is patient in severe pain?: No Is NPO status required?: No Subjective: Subjective: Says she's going home - need to care for her kids. Tolerating clears w/o n/v, some abd soreness. No headache. Not interested in advancing diet yet. Thinks she and her primary doc can manage. Objective: Vital Signs: Vital Signs Date Time Temp Pulse Resp B/P (MAP) Pulse Ox O2 Delivery O2 Flow Rate FiO2 02/18/19 07:52 Room Air 02/18/19 07:00 97.5 86 18 134/98 (110) 99 97.5 Imaging: Abd US Impression: Fatty infiltration of the liver. Right renal septated cyst. Interval follow-up in 8 months by ultrasound to assess stability is recommended. PE: GEN: NAD LUNGS: CTAB HEART: RRR ABD: S/ND/NT NEURO/PSYCH: A & O 3, flat A/P: N/v - resolved - h/o CVS and migraines, also marijuana use -- Now tolerating liquids. DC per primary. VLAD SMITH Feb 18, 2019 11:18
[2019-02-18] MEDS ORDERED: PROC25SU23 RC (11:37)
--- NOTE | 2019-02-18 11:41 | PDOC3 ---
Discharge Summary Visit Information Date of Admission: Feb 16, 2019 Date of Discharge: Feb 18, 2019 Admitting Diagnosis: Intractable nausea and vomiting Final Diagnosis Problems Medical Problems: (1) Cyclic vomiting syndrome Status: Acute (2) Hypokalemia Status: Acute Brief Hospital Course Allergies Allergies Coded Allergies Type Severity Reaction Last Updated Verified pregabalin Allergy Intermediate Itching 04/17/16 Yes lisinopril Adverse Reaction Intermediate 04/17/16 Yes Vital Signs Vital Signs Date Time Temp Pulse Resp B/P (MAP) Pulse Ox O2 Delivery O2 Flow Rate FiO2 02/18/19 07:52 Room Air 02/18/19 07:00 97.5 86 18 134/98 (110) 99 97.5 Lab Results Laboratory Tests Test 02/17/19 04:30 02/18/19 05:00 White Blood Count 17.2 x10^3/uL (4.0-11.0) 12.0 x10^3/uL (4.0-11.0) Red Blood Count 4.44 x10^6/uL (3.50-5.40) 4.21 x10^6/uL (3.50-5.40) Hemoglobin 14.6 g/dL (12.0-15.5) 13.6 g/dL (12.0-15.5) Hematocrit 43.0 % (36.0-47.0) 40.3 % (36.0-47.0) Mean Corpuscular Volume 97 fL (79-100) 96 fL (79-100) Mean Corpuscular Hemoglobin 33 pg (25-35) 32 pg (25-35) Mean Corpuscular Hemoglobin Concent 34 g/dL (31-37) 34 g/dL (31-37) Red Cell Distribution Width 14.8 % (11.5-14.5) 13.9 % (11.5-14.5) Platelet Count 365 x10^3/uL (140-400) 316 x10^3/uL (140-400) Neutrophils (%) (Auto) 61 % (31-73) 65 % (31-73) Lymphocytes (%) (Auto) 31 % (24-48) 29 % (24-48) Monocytes (%) (Auto) 8 % (0-9) 6 % (0-9) Eosinophils (%) (Auto) 1 % (0-3) 0 % (0-3) Basophils (%) (Auto) 0 % (0-3) 0 % (0-3) Neutrophils # (Auto) 10.5 x10^3/uL (1.8-7.7) 7.8 x10^3/uL (1.8-7.7) Lymphocytes # (Auto) 5.3 x10^3/uL (1.0-4.8) 3.5 x10^3/uL (1.0-4.8) Monocytes # (Auto) 1.3 x10^3/uL (0.0-1.1) 0.7 x10^3/uL (0.0-1.1) Eosinophils # (Auto) 0.1 x10^3/uL (0.0-0.7) 0.0 x10^3/uL (0.0-0.7) Basophils # (Auto) 0.0 x10^3/uL (0.0-0.2) 0.0 x10^3/uL (0.0-0.2) Sodium Level 145 mmol/L (136-145) 142 mmol/L (136-145) Potassium Level 2.8 mmol/L (3.5-5.1) 3.3 mmol/L (3.5-5.1) Chloride Level 104 mmol/L (98-107) 104 mmol/L (98-107) Carbon Dioxide Level 31 mmol/L (21-32) 29 mmol/L (21-32) Anion Gap 10 (6-14) 9 (6-14) Blood Urea Nitrogen 12 mg/dL (7-20) 8 mg/dL (7-20) Creatinine 1.6 mg/dL (0.6-1.0) 1.2 mg/dL (0.6-1.0) Estimated GFR (Cockcroft-Gault) 36.3 50.6 BUN/Creatinine Ratio 8 (6-20) Glucose Level 100 mg/dL (70-99) 110 mg/dL (70-99) Calcium Level 9.3 mg/dL (8.5-10.1) 8.8 mg/dL (8.5-10.1) Total Bilirubin 0.4 mg/dL (0.2-1.0) Aspartate Amino Transf (AST/SGOT) 17 U/L (15-37) Alanine Aminotransferase (ALT/SGPT) 17 U/L (14-59) Alkaline Phosphatase 74 U/L (46-116) Total Protein 7.4 g/dL (6.4-8.2) Albumin 3.3 g/dL (3.4-5.0) Albumin/Globulin Ratio 0.8 (1.0-1.7) Phosphorus Level 3.3 mg/dL (2.6-4.7) Magnesium Level 2.1 mg/dL (1.8-2.4) Laboratory Tests Test 02/18/19 05:00 White Blood Count 12.0 x10^3/uL (4.0-11.0) Red Blood Count 4.21 x10^6/uL (3.50-5.40) Hemoglobin 13.6 g/dL (12.0-15.5) Hematocrit 40.3 % (36.0-47.0) Mean Corpuscular Volume 96 fL (79-100) Mean Corpuscular Hemoglobin 32 pg (25-35) Mean Corpuscular Hemoglobin Concent 34 g/dL (31-37) Red Cell Distribution Width 13.9 % (11.5-14.5) Platelet Count 316 x10^3/uL (140-400) Neutrophils (%) (Auto) 65 % (31-73) Lymphocytes (%) (Auto) 29 % (24-48) Monocytes (%) (Auto) 6 % (0-9) Eosinophils (%) (Auto) 0 % (0-3) Basophils (%) (Auto) 0 % (0-3) Neutrophils # (Auto) 7.8 x10^3/uL (1.8-7.7) Lymphocytes # (Auto) 3.5 x10^3/uL (1.0-4.8) Monocytes # (Auto) 0.7 x10^3/uL (0.0-1.1) Eosinophils # (Auto) 0.0 x10^3/uL (0.0-0.7) Basophils # (Auto) 0.0 x10^3/uL (0.0-0.2) Sodium Level 142 mmol/L (136-145) Potassium Level 3.3 mmol/L (3.5-5.1) Chloride Level 104 mmol/L (98-107) Carbon Dioxide Level 29 mmol/L (21-32) Anion Gap 9 (6-14) Blood Urea Nitrogen 8 mg/dL (7-20) Creatinine 1.2 mg/dL (0.6-1.0) Estimated GFR (Cockcroft-Gault) 50.6 Glucose Level 110 mg/dL (70-99) Calcium Level 8.8 mg/dL (8.5-10.1) Phosphorus Level 3.3 mg/dL (2.6-4.7) Magnesium Level 2.1 mg/dL (1.8-2.4) Brief Hospital Course Ms Worthington 39 y/o female who reports h/o cyclic vomiting since childhood. Episodes of n/v are now less frequent (maybe twice yearly) and are precipitated by migraines which is what she thinks happened this time. Says she didn't take her migraine pills soon enough and n/v began day prior to admit. Then she laid down, her back popped, and pain radiated around to front/upper abdomen. Pain has resolved and she is currently tolerating ice chips. In between episodes, she has extended periods without nausea/vomiting. No dysphagia but does hurt to swallow a little bit right now. Prior EGD at [facility] 2 years ago. Daily marijuana - says she uses for chronic pain and HTN. 02/17: K is 2.8, still vomiting. She is drowsy today. Cr. down to 1.6. Lost IV access. She does wish to go home, but continues to vomit. K up to 3.3, tolerated half of both her last 2 meals, is asking why she stopped receiving IV ativan. Bowel series negative. Wishes for d/c to take care of her 13 and 16 yo. Greater than 30 minutes spent on d/c Vital Signs Date Time Temp Pulse Resp B/P (MAP) Pulse Ox O2 Delivery O2 Flow Rate FiO2 02/17/19 11:00 97.3 90 20 161/88 (112) 96 Room Air 97.3 Physical Exam General: Alert, Oriented X3, Cooperative, mild distress Abdomen: Normal bowel sounds, Soft, No tenderness Extremities: No cyanosis Problem list - Intractable vomiting - IV antiemetics 1.6 cm abnormality within the midpole of the right kidney, perhaps a complex cyst versus neoplasm. Further evaluation with renal ultrasound, [address] scan, or renal MRI would yield clarity. ON RECENT CT Acute renal injury - likely vasomotor nephropathy - cyst as above. Nephrology consulted. IVF improving condition Severe hypokalemia HYPOMAGNESEMIA Leukocytosis likely sec to prolonged vomiting - improving Obesity THC ABUSE DIABETES HYPERTENSION sirs Discharge Information Condition at Discharge: Improved Follow Up: Weeks Disposition/Orders: D/C to Home Scheduled Cetirizine Hcl (Zyrtec) 10 Mg Capsule, 10 MG PO DAILY, (Reported) Entered as Reported by: ROBY GOINS on 02/18/131513 Last Action: Converted on 02/16/191202 by AMITA BERGER MD Hydrochlorothiazide (Hydrochlorothiazide Capsule ) 12.5 Mg Capsule, 12.5 MG PO DAILY for DIURETIC, Ref 0 (Reported) Entered as Reported by: JERRY BILLINGS on 04/15/161734 Last Action: HELD on 02/16/191202 by AMITA BERGER MD Liraglutide (Victoza 2-Isai) 0.6 Mg/0.1 Ml Pen.injctr, 0.6 DAILY for , (Reported) Entered as Reported by: HANNA FUNES RN on 02/17/191607 Last Action: New Order on 02/17/191607 by HANNA FUNES RN Metformin Hcl (Metformin Hcl) 500 Mg Tablet, 500 MG BID for , (Reported) Entered as Reported by: HANNA FUNES RN on 02/17/191607 Last Action: New Order on 02/17/191607 by HANNA FUNES RN Nortriptyline Hcl (Nortriptyline Hcl) 10 Mg Capsule, 10 MG HS for , (Reported) Entered as Reported by: HANNA FUNES RN on 02/17/191607 Last Action: New Order on 02/17/191607 by HANNA FUNES RN Omeprazole (Omeprazole) 40 Mg Capsule.dr, 40 MG PO DAILY, (Reported) Entered as Reported by: JERRY BILLINGS on 04/15/161734 Last Action: Converted on 02/16/191202 by AMITA BERGER MD Ondansetron (Ondansetron Odt) 4 Mg Tab.rapdis, 1 TAB PO PRN Q6-8HRS, #16 Prescribed by: Sylvia Bay APRN on 01/04/19 1455 Last Action: HELD on 02/16/191202 by AMITA BERGER MD Pantoprazole Sodium (Pantoprazole Sodium) 40 Mg Tablet.dr, 40 MG PO DAILY for , (Reported) Entered as Reported by: HANNA FUNES RN on 02/17/191607 Last Action: New Order on 02/17/191607 by HANNA FUNES RN Propranolol Hcl (Propranolol Hcl) 40 Mg Tablet, 40 BID for , (Reported) Entered as Reported by: HANNA FUNES RN on 02/17/191607 Last Action: New Order on 02/17/191607 by HANNA FUNES RN Topiramate (Topiramate) 50 Mg Tablet, 50 MG BID for , (Reported) Entered as Reported by: HANNA FUNES RN on 02/17/191607 Last Action: New Order on 02/17/191607 by HANNA FUNES RN Tramadol Hcl (Tramadol Hcl) 50 Mg Tablet, 50 MG PO BID, (Reported) Entered as Reported by: ROBY GOINS on 03/11/13 0831 Last Action: Continued on 02/16/191202 by AMITA BERGER MD Venlafaxine Hcl (Effexor Xr) 150 Mg Cap.er.24h, 1 CAP PO DAILY for anxiety, #30 Ref 1 (Reported) Entered as Reported by: GUANAKO TALLEY on 02/16/19 0902 Last Taken: Unknown Dose on 02/15/19 Last Action: Converted on 02/16/191202 by AMITA BERGER MD Scheduled PRN Methocarbamol (Methocarbamol) 500 Mg Tablet, 500 MG PRN Q6HRS PRN for , (Reported) Entered as Reported by: HANNA FUNES RN on 02/17/191607 Last Action: New Order on 02/17/191607 by HANNA FUNES RN Prochlorperazine Maleate (Prochlorperazine Maleate) 25 Mg Supp.rect, 25 MG RC PRN DAILY PRN for NAUSEA for 30 Days, #12 Prescribed by: FERNANDO AREVALO MD on 02/18/19 1137 Sumatriptan Succinate (Imitrex) 50 Mg Tablet, 50 MG PO ONCE PRN for MIGRAINE HEADACHE, (Reported) Entered as Reported by: JERRY BILLINGS on 04/15/161734 Last Action: HELD on 02/16/191202 by AMITA BERGER MD Tizanidine Hcl (Zanaflex) 4 Mg Capsule, 2 MG PO TID PRN for MUSCLE SPASMS, (Reported) Entered as Reported by: JERRY BILLINGS on 04/15/161734 Last Action: HELD on 02/16/191202 by AMITA BERGER MD Tizanidine Hcl (Tizanidine Hcl) 4 Mg Tablet, 4 MG PRN Q8HRS PRN for MUSCLE SPASMS, (Reported) Entered as Reported by: HANNA FUNES RN on 02/17/191607 Last Action: New Order on 02/17/191607 by HANNA FUNES RN Discontinued Medications Hydrochlorothiazide (Hydrochlorothiazide) 25 Mg Tablet, 25 MG DAILY for , (Reported) Entered as Reported by: HANNA FUNES RN on 02/17/191607 Last Action: New Order on 02/17/191607 by HANNA FUNES RN Hydrocodone Bit/Acetaminophen (Hydrocodone-Apap 5-325 ) 1 Each Tablet, 1 TAB PO PRN Q6HRS PRN for PAIN, Ref 0 (Reported) Entered as Reported by: JERRY BILLINGS on 04/15/161734 Last Action: HELD on 02/16/191202 by AMITA BERGER MD Hemodynamically unstable?: No Is patient in severe pain?: No Is NPO status required?: No FERNANDO AREVALO MD Feb 18, 2019 11:41
--- NOTE | 2019-02-18 12:15 | NUR ---
Discharge Note: RODNEY VANN Discharge instructions and discharge home medications reviewed with Patient and a copy given. All questions have been answered and understanding verbalized. The following instructions and handouts were given: Hypoklemia and potassium rich food for diet Discontinued lines and drains: Peripheral IV intact. Patient discharged to Home via Wheelchair
== END 2019-02-18 12:15 | disposition home or self-care (01) | DRG 682 ==
LOC: ER 01:02 → ED HOLD 03:10 → 2 SOUTH 07:52
PROVIDERS: ADMIT Internal Medicine; ATTEND Internal Medicine
DX: N17.0 Acute kidney failure with tubular necrosis (principal); R65.11 Systemic inflammatory response syndrome (SIRS) of non-infectious origin with acute organ dysfunction; E87.6 Hypokalemia; G43.A0 Cyclical vomiting, in migraine, not intractable; I10 Essential (primary) hypertension; G89.29 Other chronic pain; E11.9 Type 2 diabetes mellitus without complications; F12.10 Cannabis abuse, uncomplicated; F17.210 Nicotine dependence, cigarettes, uncomplicated; E83.42 Hypomagnesemia; D72.829 Elevated white blood cell count, unspecified; E66.01 Morbid (severe) obesity due to excess calories; Z68.22 Body mass index [BMI] 22.0-22.9, adult; K21.9 Gastro-esophageal reflux disease without esophagitis; F32.9 Major depressive disorder, single episode, unspecified; F41.9 Anxiety disorder, unspecified; E86.0 Dehydration; N28.1 Cyst of kidney, acquired; K76.0 Fatty (change of) liver, not elsewhere classified; Z98.891 History of uterine scar from previous surgery; Z88.8 Allergy status to other drugs, medicaments and biological substances; Z84.89 Family history of other specified conditions
CPT/HCPCS: 36415; 74022; 76700; 76770; 80048; 80053; 81001; 81025; 83735; 84100; 85007; 85025; 87086; 94640; 94760; 96361; 96365; 96375; C9113; J0696; J1630; J1650; J2060; J2405; J2765; J3475; J3480; J7030; 99285-25; G0378